=== PATIENT | male | born 1955 | race Caucasian/White ===

== ENCOUNTER 2017-07-05 20:12 | Inpatient (IN) | payer OTHER ==
[~2017-07-05] VITALS: Ht 167.6 cm; Wt 137.0 kg
[~2017-07-05 20:12] MED LIST: ACET1TAB49 PO; HYDR25TA6 PO; LISI10TA2 PO
[2017-07-05 20:38] VITALS: BP 106/64; RESP 18
[2017-07-05 20:39] VITALS: PULSE 82
[2017-07-05 20:40] VITALS: Ht 167.6 cm; Wt 137.0 kg
[2017-07-05] MEDS ORDERED: DOCUSATE SODIUM 100 MG CAP PO PRN (21:00)
[2017-07-05] MEDS ORDERED: NACL 0.9% 3 ML SYG IV SCH (21:00)
[2017-07-05] MEDS ORDERED: ONDANSETRON 4 MG INJ IV PRN (21:00)
[2017-07-05] MEDS ORDERED: BISACODYL (EC) 5 MG TAB PO PRN (21:00)
[2017-07-05] MEDS ORDERED: ACETAMINOPHEN 325 MG TAB PO PRN (21:00)
[2017-07-05 21:59] LABS: BASOPHIL # 0.1 10^3/ul (0.0-0.1); BASOPHILS % 1.1 % (0.0-2.0); EOSINOPHILS # 0.2 10^3/ul (0.0-0.5); EOSINOPHILS % 1.6 % (0.0-7.0); HEMOGLOBIN 13.4 g/dl (14.0-18.0); LYMPHOCYTES # 2.2 10^3/ul (0.8-2.9); LYMPHOCYTES % 23.7 % (15.0-51.0); MEAN CORPUSCULAR HEMOGLOBIN 29.1 pg (29.0-33.0); MEAN CORPUSCULAR HGB CONC 32.7 g/dl (32.0-37.0); MEAN CORPUSCULAR VOLUME 88.9 fl (82.0-101.0); MEAN PLATELET VOLUME 11.7 fl (7.4-10.4); MONOCYTE # 0.8 10^3/ul (0.3-0.9); MONOCYTES % 9.2 % (0.0-11.0); NEUTROPHIL # 5.9 10^3/ul (1.6-7.5); NEUTROPHILS % 64.1 % (39.0-77.0); PLATELET COUNT 169 10^3/UL (140-415); RED BLOOD COUNT 4.61 10^6/ul (4.70-6.10); RED CELL DISTRIBUTION WIDTH 16.3 % (11.5-14.5); WHITE BLOOD COUNT 9.2 10^3/ul (4.8-10.8)
[2017-07-05 22:29] LABS: ALBUMIN 2.9 g/dl (3.3-4.9); ALBUMIN/GLOBULIN RATIO 0.65; BILIRUBIN,INDIRECT 0.7 mg/dl (0-1.1); BILIRUBIN,TOTAL 0.7 mg/dl (0.2-1.3); CALCIUM 8.3 mg/dl (8.4-10.2); CHOL/HDL RATIO 5.2 RATIO; CREATININE 1.74 mg/dl (0.61-1.24); MAGNESIUM 2.5 mg/dl (1.7-2.5); TOTAL PROTEIN 7.3 g/dl (6.1-8.1)
[2017-07-05] MEDS: SOD CHLORIDE 0.9% 1,000 ML IV SCH (22:42)
[2017-07-05 23:26] LABS: THYROID STIMULATING HORMONE 2.8 MIU/L (0.465-4.680)
[2017-07-06] VITALS (12 sets, daily range): BP systolic 100–134; BP diastolic 57–78; PULSE 59–87; RESP 16–20
[2017-07-06] MEDS: morphine 2 MG INJ IV PRN (01:16)
--- NOTE | 2017-07-06 01:18 | HP ---
Date/Time of Note Date/Time of Note DATE: 07/06/17 TIME: 01:01 Assessment/Plan VTE Prophylaxis VTE Prophylaxis Intervention: SCD's Assessment/Plan Chief Complaint/Hosp Course This is a 61-year-old male being admitted to the telemetry floor for: #1 acute pancreatitis: Patient's initial lipase was 206 however upon repeat once he arrived at [place] [id number]. At the current time we will keep the patient n.p.o. We will continue aggressive fluid hydration with normal saline at 200 cc an hour. Will provide Zofran as needed for nausea, morphine as needed for pain. #2 cirrhosis: Patient was recently told he had cirrhosis and he has subsequently obtained appointment with animal husbandry worker as an outpatient in the coming weeks. At the current time he does not appear to be encephalopathic, I will check an ammonia level. When patient gets discharged he will benefit from Lasix. I will check his PT/INR #3 Nonoliguric kidney injury: Previous creatinine was from 2012 which was 0.8. His creatinine was 1.84 from his transfer facility. The current time is likely appears to be acute on chronic kidney disease. Will provide him IV fluid hydration at this time secondary to #1. Will check a renal ultrasound. Will check urine studies. Urine osmolality. Will consult nephrology. Urinalysis and urine microscope #4 Hyponatremia: This likely appears multifactorial in the setting of cirrhosis as well as thiazide effect. Current time I will hold his thiazide as well as his lisinopril secondary to hyperkalemia which was 5.5 at the transfer facility. As he needs fluids at the current time for #1 we will continue aggressive fluid hydration and will monitor his sodium levels. Will consult nephrology. #5 hyperkalemia: Patient had potassium 5.5 when he presented to the transfer facility. At the current time is 5.0 there is a possibility that he received [facility] a transfer facility as well will need to confirm this. Will need to reassess his blood pressure medications at the current time will hold his lisinopril. #6 Thrombocytopenia: Platelets are 169 likely secondary to #2. Continue to monitor #7 diabetes mellitus: Patient has a hemoglobin A1c of 5.6. At the current time will continue a diabetic controlled diet. #8 hypertension: At the current time will hold hydrochlorothiazide and lisinopril secondary to hyponatremia and hyperkalemia. His blood pressure at the current time is on the lower side of normotensive. We will continue to monitor his blood pressures at this time and initiate new medications as indicated. #9 DVT GI prophylaxis: SCDs, no GI prophylaxis indicated further treatment strategy will be implemented as per the clinical course Problems: HPI/ROS Admit Date/Time Admit Date/Time Jul 05, 2017 at 20:12 Hx of Present Illness cc: abdominal pain This is a 61 year old male [facility]. Patient was found to have pancreatitis and due to insurance purposes was transferred over here. Patient' s initial lipase was 206. AST was 90 ALT was 29 alk phos is 172 total bili was 1.2. Patient also has a history of cirrhosis for which she is going to be seeing a liver specialist in the coming weeks. He also has a history of hypertension diabetes. At the current time patient states that his abdominal pain is under control with the pain medications. He reports that his last drink was 4 days ago. He states that he was a heavy drinker for approximately 20 years was 6 months ago he cut down significantly. He now states that he is more of a social drinker. Allergies: NKDA Medications: See MAR ROS Const: As per HPI Eyes : No pain discharge or redness or change in visual acuity ENT: No pain, sore throat, congestion, congestion, dysphagia or discharge Respiratory: No shortness of breath, cough, sputum, wheezing, or pleuritic pain Cardiovascular: No chest pain, palpitation, PND, or edema GI : As per HPI Genitourinary: No dysuria, hematuria, flank pain , discharge or CVA tenderness Musculoskeletal: No joint pain, back pain, neck pain, restricted range of motion in neck or joints Skin: No rash, bruising or hives Neuro: No headache, dizziness, syncope, seizure, focal weakness Endocrine: No polyuria, polydipsia, temperature intolerance Psych: No hallucination, depression, anxiety or suicidal ideation PMH/Family/Social Past Medical History Cirrhosis, diabetes mellitus, hypertension Past Surgical History Appendectomy Family History Significant Family History: no pertinent family hx Social History Alcohol Use: other (Previous heavy drinking for greater than 20 years, over the last 6 months he has decreased his drinking with the last drink 4 days ago. He is currently not an everyday drinker) Smoking Status: Never smoker Drug Use: none Exam/Review of Systems Vital Signs Vitals Vital Signs Date Time Temp Pulse Resp B/P Pulse Ox O2 Delivery O2 Flow Rate FiO2 07/06/17 00:36 98.4 98 16 100/57 100 Exam Exam General: Patient was lying comfortably in bed sleeping. He was easily arousable. HEENT: Atraumatic, normocephalic. The pupils are equal, round and reactive. Extraocular motor are intact Neck: Supple with full range of motion. No rigidity or meningismus Chest: Nontender Lungs: Clear to auscultation bilaterally no crackles rales or wheezing Heart: Normal S1-S2, Regular rhythm and rate. No murmur, S3, or S4 Abdomen: Soft, mildly distended with underlying ascites, mild tenderness to palpation of epigastric area, Extremities: Nonpitting edema to bilateral lower extremities at the level of the ankles Neurologic: Normal mental status, speech normal, cranial nerves II through XII are intact, motor and sensory are intact, no focal weakness Additional Comments Pertinent laboratory findings below, please see transfer recommendation in the chart for full reports: CT of the abdomen and pelvis impression: Cirrhotic liver with ascites, cholelithiasis, retractable left testicle, thickened bladder with inflammation AST 90 ALT 29 alk phos 172 total bili 1.2 creatinine 1.84 GFR 37 potassium 5.5 lipase 206 Labs Result Diagram: 07/05/17212307/05/172123 Medications Medications Current Medications Sodium Chloride (NS) 1,000 ml @ 200 mls/hr Q5H IV Last administered on t 22:42; Admin Dose 200 MLS/HR; Start 07/05/17 at 20:49 Ondansetron HCl (Zofran Inj) 4 mg Q6H PRN IV NAUSEA AND/OR VOMITING; Start at 21:00 Acetaminophen (Tylenol Tab) 650 mg Q6H PRN PO PAIN LEVEL 1-3 OR FEVER; Start 07/05/17 at 21:00 Morphine Sulfate (morphine) 2 mg Q4H PRN IV PAIN LEVEL 7-10; Start 07/05/17 at 21:00 Docusate Sodium (Colace) 100 mg Q12H PRN PO CONSTIPATION; Start 07/05/17 at 21 :00 Bisacodyl (Dulcolax) 5 mg DAILY PRN PO CONSTIPATION; Start 07/05/17 at 21:00 Insulin Aspart (Novolog Insulin Pen) NOVOLOG *MILD* ALGORI... Q4 SC ; Start at 05:00 MALVIN HERNANDEZ Jul 06, 2017 01:11
[2017-07-06] MEDS: SOD CHLORIDE 0.9% 1,000 ML IV SCH ×4 (01:49→18:30)
[2017-07-06] MEDS ORDERED: ACCU-CHEK XX SCH (02:00)
[2017-07-06] MEDS ORDERED: ALBUMIN HUMAN 25% 100 ML IV ONE (02:30)
[2017-07-06] MEDS ORDERED: hydrALAzine 20 MG INJ IV PRN (02:30)
[2017-07-06 02:44] LABS: ALBUMIN 2.6 g/dl (3.3-4.9); ALBUMIN/GLOBULIN RATIO 0.59; BILIRUBIN,INDIRECT 0.6 mg/dl (0-1.1); BILIRUBIN,TOTAL 0.6 mg/dl (0.2-1.3); CALCIUM 7.8 mg/dl (8.4-10.2); CREATININE 1.67 mg/dl (0.61-1.24); POTASSIUM 4.1 mmol/L (3.5-5.1)
[2017-07-06] MEDS ORDERED: INSULIN ASPART [NOVOLOG] 3 ML PEN SC SCH (05:00)
[2017-07-06 07:54] LABS: BASOPHIL # 0.1 10^3/ul (0.0-0.1); BASOPHILS % 0.7 % (0.0-2.0); EOSINOPHILS # 0.1 10^3/ul (0.0-0.5); EOSINOPHILS % 0.7 % (0.0-7.0); HEMATOCRIT 35.1 % (42.0-52.0); HEMOGLOBIN 11.8 g/dl (14.0-18.0); LYMPHOCYTES % 24.1 % (15.0-51.0); MEAN CORPUSCULAR HEMOGLOBIN 29.4 pg (29.0-33.0); MEAN CORPUSCULAR HGB CONC 33.6 g/dl (32.0-37.0); MEAN CORPUSCULAR VOLUME 87.5 fl (82.0-101.0); MEAN PLATELET VOLUME 12.2 fl (7.4-10.4); MONOCYTE # 0.6 10^3/ul (0.3-0.9); MONOCYTES % 7.5 % (0.0-11.0); NEUTROPHIL # 5.4 10^3/ul (1.6-7.5); NEUTROPHILS % 66.5 % (39.0-77.0); PLATELET COUNT 141 10^3/UL (140-415); RED BLOOD COUNT 4.01 10^6/ul (4.70-6.10); RED CELL DISTRIBUTION WIDTH 16.2 % (11.5-14.5); WHITE BLOOD COUNT 8.1 10^3/ul (4.8-10.8)
[2017-07-06 08:15] LABS: INR 1.55; PROTIME 18.9 Sec (11.9-14.9); PT RATIO 1.5
[2017-07-06 08:16] LABS: PARTIAL THROMBOPLASTIN TIME 41.2 Sec (25.0-35.0)
[2017-07-06 08:22] LABS: ALBUMIN 2.8 g/dl (3.3-4.9); ALBUMIN/GLOBULIN RATIO 0.66; BILIRUBIN,INDIRECT 0.6 mg/dl (0-1.1); BILIRUBIN,TOTAL 0.6 mg/dl (0.2-1.3); CALCIUM 7.9 mg/dl (8.4-10.2); CREATININE 1.65 mg/dl (0.61-1.24); POTASSIUM 4.1 mmol/L (3.5-5.1)
--- NOTE | 2017-07-06 09:18 | RADRPT ---
PROCEDURE: Renal US. CLINICAL INDICATION: Renal insufficiency TECHNIQUE: Multiple sonographic images of the kidneys were obtained. COMPARISON: No prior studies are available for comparison. FINDINGS: The kidneys are well visualized. The right kidney measures 11.4 cm. The left kidney measures 12.1 cm . Normal renal cortical echogenicity. No evidence of shadowing renal calculi. Right renal simple cys t measuring 2.6 cm. No hydronephrosis. Nondistended urinary bladder. IMPRESSION: Normal renal ultrasound. RPTAT:AAJJ Physician Deep Date Time Electronically viewed and signed by Physician Deep on 07/06/2017 09:18 /
--- NOTE | 2017-07-06 14:28 | PN ---
Date/Time of Note Date/Time of Note DATE: 07/06/17 TIME: 14:18 Assessment/Plan VTE Prophylaxis VTE Prophylaxis Intervention: SCD's Lines/Catheters IV Catheter Type (from Nrsg): Saline Lock Assessment/Plan Assessment/Plan 1. acute pancreatitis, alcohol related, pain improved, start liquid diet 2. Alcoholism and alcoholic liver disease, advise to quit ETOH 3. Renal failure, acute versus chronic, IVF, follow up renal function 4. Hyponatremia, dehydration, IVF 5. DVT prophylaxis: SCDs, Subjective 24 Hr Interval Summary Free Text/Dictation no abdominal pain, no nausea or vomiting Exam/Review of Systems Vital Signs Vitals Vital Signs Date Time Temp Pulse Resp B/P Pulse Ox O2 Delivery O2 Flow Rate FiO2 07/06/17 12:00 63 07/06/17 11:34 98.8 18 107/68 94 07/06/17 04:00 Room Air Exam Constitutional: alert, obese, oriented, well developed Psych: nl mood/affect, no complaints Head: atraumatic, normocephalic Eyes: EOMI, PERRL, nl conjunctiva, nl lids ENMT: mucosa pink and moist, nl external ears & nose, nl lips & teeth, nl nasal mucosa & septum Neck: non-tender, supple Respiratory: clear to auscultation, normal air movement, No congested cough, No crackles/rales, No diminished breath sounds, No intercostal retraction, No labored breathing, No other, No respirations, No tactile fremitus, No wheezing Cardiovascular: nl pulses, regular rate and rhythm, No S3, No S4, No bruits, No diastolic murmur, No edema, No gallop, No irregular rhythm, No jugular venous distention (JVD), No murmurs/extra sounds, No other, No rub, No systolic murmur Gastrointestinal: nl liver, spleen, non-tender, soft Musculoskeletal: nl extremities to inspection Extremities: edema, normal pulses Neurological: LENS EDGE GRINDER MACHINE II-XII intact, nl mental status, nl speech, nl strength Lymph: nl lymph nodes Results Result Diagram: 07/06/17 0652 07/06/17 0718 Results 24 hrs Laboratory Tests Test 07/05/17 21:24 07/05/17 22:42 07/06/17 01:55 07/06/17 06:52 White Blood Count 9.2 8.1 Red Blood Count 4.61 L 4.01 L Hemoglobin 13.4 L 11.8 L Hematocrit 41.0 L 35.1 L Mean Corpuscular Volume 88.9 87.5 Mean Corpuscular Hemoglobin 29.1 29.4 Mean Corpuscular Hemoglobin Concent 32.7 33.6 Red Cell Distribution Width 16.3 H 16.2 H Platelet Count 169 141 Mean Platelet Volume 11.7 H 12.2 H Neutrophils % 64.1 66.5 Lymphocytes % 23.7 24.1 Monocytes % 9.2 7.5 Eosinophils % 1.6 0.7 Basophils % 1.1 0.7 Nucleated Red Blood Cells % 0.0 0.0 Neutrophils # 5.9 5.4 Lymphocytes # 2.2 2.0 Monocytes # 0.8 0.6 Eosinophils # 0.2 0.1 Basophils # 0.1 0.1 Nucleated Red Blood Cells # 0.0 0.0 Sodium Level 130 L 131 L Potassium Level 5.0 4.1 Chloride Level 101 102 Carbon Dioxide Level 20 L 19 L Anion Gap 14 14 Blood Urea Nitrogen 54 H 51 H Creatinine 1.74 H 1.67 H Glucose Level 91 107 Hemoglobin A1c 5.6 Calcium Level 8.3 L 7.8 L Magnesium Level 2.5 Total Bilirubin 0.7 0.6 Direct Bilirubin 0.00 0.00 Indirect Bilirubin 0.7 0.6 Aspartate Amino Transf (AST/SGOT) 99 H 92 H Alanine Aminotransferase (ALT/SGPT) 50 42 Alkaline Phosphatase 176 H 159 H Total Protein 7.3 7.0 Albumin 2.9 L 2.6 L Globulin 4.40 H 4.40 H Albumin/Globulin Ratio 0.65 0.59 Triglycerides Level 79 Cholesterol Level 104 LDL Cholesterol, Calculated 68 HDL Cholesterol 20 L Cholesterol/HDL Ratio 5.2 Lipase 643 H Thyroid Stimulating Hormone (TSH) 2.800 Bedside Glucose 90 Prothrombin Time 18.9 H Prothrombin Time Ratio 1.5 INR International Normalized Ratio 1.55 Activated Partial Thromboplast Time 41.2 H Osmolality 289 Ammonia 76 H Test 07/06/17 07:18 Sodium Level 133 L Potassium Level 4.1 Chloride Level 104 Carbon Dioxide Level 19 L Anion Gap 14 Blood Urea Nitrogen 53 H Creatinine 1.65 H Glucose Level 88 Calcium Level 7.9 L Total Bilirubin 0.6 Direct Bilirubin 0.00 Indirect Bilirubin 0.6 Aspartate Amino Transf (AST/SGOT) 91 H Alanine Aminotransferase (ALT/SGPT) 47 Alkaline Phosphatase 140 H Total Protein 7.0 Albumin 2.8 L Globulin 4.20 H Albumin/Globulin Ratio 0.66 Lipase 600 H Medications Medications Current Medications Sodium Chloride (NS) 1,000 ml @ 200 mls/hr Q5H IV Last administered on 05:06; Admin Dose 200 MLS/HR; Start 07/05/17 at 20:49 Ondansetron HCl (Zofran Inj) 4 mg Q6H PRN IV NAUSEA AND/OR VOMITING; Start at 21:00 Acetaminophen (Tylenol Tab) 650 mg Q6H PRN PO PAIN LEVEL 1-3 OR FEVER; Start 07/05/17 at 21:00 Morphine Sulfate (morphine) 2 mg Q4H PRN IV PAIN LEVEL 7-10 Last administered on 07/06/17 01:16; Admin Dose 2 MG; Start 07/05/17 at 21:00 Docusate Sodium (Colace) 100 mg Q12H PRN PO CONSTIPATION; Start 07/05/17 at 21 :00 Bisacodyl (Dulcolax) 5 mg DAILY PRN PO CONSTIPATION; Start 07/05/17 at 21:00 Hydralazine HCl (Apresoline) 10 mg Q6H PRN IV ELEVATED SYSTOLIC BP; Start at 02:30 GENNA BENJAMIN MD Jul 06, 2017 14:28
[2017-07-06 14:58] LABS: ADD UMIC YES; UR ASCORBIC ACID NEGATIVE (NEGATIVE); UR BILIRUBIN (Dip) NEGATIVE (NEGATIVE); UR BLOOD (Dip) NEGATIVE (NEGATIVE); UR CLARITY CLEAR (CLEAR); UR COLOR YELLOW (YELLOW); UR GLUCOSE (Dip) NEGATIVE (NEGATIVE); UR KETONES (Dip) TRACE mg/dL (NEGATIVE); UR LEUKOCYTE ESTERASE (Dip) NEGATIVE Leu/ul (NEGATIVE); UR NITRITE (Dip) NEGATIVE (NEGATIVE); UR RBC 1 /HPF (0-5); UR SPECIFIC GRAVITY (Dip) 1.017 (1.003-1.030); UR TOTAL PROTEIN (Dip) 2+ mg/dl (NEGATIVE); UR UROBILINOGEN (Dip) 2+ mg/dL (NEGATIVE)
[2017-07-07] VITALS (9 sets, daily range): BP systolic 95–114; BP diastolic 59–75; PULSE 71–77; RESP 18–20
[2017-07-07] MEDS: SOD CHLORIDE 0.9% 1,000 ML IV SCH ×2 (04:12→14:02)
[2017-07-07 08:42] LABS: BASOPHIL # 0.1 10^3/ul (0.0-0.1); EOSINOPHILS # 0.3 10^3/ul (0.0-0.5); EOSINOPHILS % 3.4 % (0.0-7.0); HEMATOCRIT 36.6 % (42.0-52.0); HEMOGLOBIN 12.2 g/dl (14.0-18.0); LYMPHOCYTES # 2.3 10^3/ul (0.8-2.9); LYMPHOCYTES % 28.2 % (15.0-51.0); MEAN CORPUSCULAR HEMOGLOBIN 29.1 pg (29.0-33.0); MEAN CORPUSCULAR HGB CONC 33.3 g/dl (32.0-37.0); MEAN CORPUSCULAR VOLUME 87.4 fl (82.0-101.0); MEAN PLATELET VOLUME 12.2 fl (7.4-10.4); MONOCYTE # 0.9 10^3/ul (0.3-0.9); MONOCYTES % 11.5 % (0.0-11.0); NEUTROPHIL # 4.4 10^3/ul (1.6-7.5); NEUTROPHILS % 55.6 % (39.0-77.0); PLATELET COUNT 152 10^3/UL (140-415); RED BLOOD COUNT 4.19 10^6/ul (4.70-6.10); RED CELL DISTRIBUTION WIDTH 16.1 % (11.5-14.5)
[2017-07-07 09:13] LABS: ALBUMIN 2.6 g/dl (3.3-4.9); ALBUMIN/GLOBULIN RATIO 0.63; BILIRUBIN,INDIRECT 0.7 mg/dl (0-1.1); BILIRUBIN,TOTAL 0.7 mg/dl (0.2-1.3); CALCIUM 8.2 mg/dl (8.4-10.2); CREATININE 1.35 mg/dl (0.61-1.24); POTASSIUM 4.3 mmol/L (3.5-5.1); TOTAL PROTEIN 6.7 g/dl (6.1-8.1)
--- NOTE | 2017-07-07 12:44 | PN ---
Date/Time of Note Date/Time of Note DATE: 07/07/17 TIME: 12:43 Assessment/Plan VTE Prophylaxis VTE Prophylaxis Intervention: SCD's Lines/Catheters IV Catheter Type (from [facility]): Saline Lock Assessment/Plan Chief Complaint/Hosp Course 1. Acute pancreatitis. -Most probably alcohol induced. -On full liquids. -Continue aggressive IV hydration. 2. Essential hypertension. -Blood pressure well controlled off antihypertensives (RAJEEV inhibitors and hydrochlorothiazide on hold). 3. Diabetes mellitus. -Hemoglobin A1c 5.6. -Blood sugars well controlled off treatment. 4. Acute nonoliguric kidney injury. -Hold nephrotoxic medications. -Continue IV hydration. 5. Hyponatremia. -Continue IV normal saline. 6. Anemia. -Normocytic and normochromic. -Monitor H&H closely. 7. Alcoholic liver cirrhosis. -Start diuretics once the patient's renal function is better. 8. Transaminitis without hyperbilirubinemia. -Most probably secondary to alcoholic liver cirrhosis. -Obtain liver US. 9. Fluids, electrolytes, and nutrition. -Full liquids. -IVFs. 10. DVT prophylaxis. -Bilateral SCDs. 11. Plan. -Trend pancreatic enzyme levels. -Continue pain control. -Obtain liver US. Patient was seen in collaboration with Dr. Clifford. Problems: Subjective 24 Hr Interval Summary Free Text/Dictation Denies any abdominal pain. Exam/Review of Systems Vital Signs Vitals Vital Signs Date Time Temp Pulse Resp B/P Pulse Ox O2 Delivery O2 Flow Rate FiO2 07/07/17 12:17 97.7 74 18 95/59 97 07/06/17 04:00 Room Air Intake and Output 07/06/17 07/06/17 07/07/17 15:00 23:00 07:00 Intake Total 250 ml 250 ml Balance 250 ml 250 ml Exam General: Obese, 61 year-old male lying in bed in no apparent distress. HEENT: Normocephalic, atraumatic. Eyes: Anicteric sclerae, conjunctivae clear. ENT: Nasal septum midline, oral mucosa moist. Neck supple, no JVD noticed. Respiratory: Bilaterally diminished breath sounds. No use of accessory muscles of respiration. No adventitious breath sounds. Cardiovascular: S1, S2 heard. Regular rate and rhythm. Abdomen: Soft, nontender, but nondistended. Bowel sounds positive in all 4 quadrants. Genitourinary: Deferred. Extremities: No cyanosis, no clubbing. Trace B/L pedal edema. Peripheral pulses palpable. Neurologic: Cranial nerves II through XII grossly intact. The patient is awake, alert, and oriented. Skin: Normal skin turgor. No skin rashes. Results Result Diagram: 07/07/17 0722 07/07/17 0722 Results 24 hrs Laboratory Tests Test 07/06/17 14:20 07/07/17 07:22 Urine Color YELLOW Urine Clarity CLEAR Urine pH 6.0 Urine Specific [place] 1.017 Urine Ketones TRACE A Urine Nitrite NEGATIVE Urine Bilirubin NEGATIVE Urine Urobilinogen 2+ H Urine Leukocyte Esterase NEGATIVE Urine Microscopic RBC 1 Urine Microscopic WBC 2 Urine Hemoglobin NEGATIVE Urine Osmolality 614 Urine Random Sodium < 13 L Urine Glucose NEGATIVE Urine Total Protein 2+ H White Blood Count 8.0 Red Blood Count 4.19 L Hemoglobin 12.2 L Hematocrit 36.6 L Mean Corpuscular Volume 87.4 Mean Corpuscular Hemoglobin 29.1 Mean Corpuscular Hemoglobin Concent 33.3 Red Cell Distribution Width 16.1 H Platelet Count 152 Mean Platelet Volume 12.2 H Neutrophils % 55.6 Lymphocytes % 28.2 Monocytes % 11.5 H Eosinophils % 3.4 Basophils % 1.0 Nucleated Red Blood Cells % 0.0 Neutrophils # 4.4 Lymphocytes # 2.3 Monocytes # 0.9 Eosinophils # 0.3 Basophils # 0.1 Nucleated Red Blood Cells # 0.0 Sodium Level 134 L Potassium Level 4.3 Chloride Level 104 Carbon Dioxide Level 21 Anion Gap 13 Blood Urea Nitrogen 42 #H Creatinine 1.35 H Glucose Level 100 Calcium Level 8.2 L Total Bilirubin 0.7 Direct Bilirubin 0.00 Indirect Bilirubin 0.7 Aspartate Amino Transf (AST/SGOT) 110 H Alanine Aminotransferase (ALT/SGPT) 54 Alkaline Phosphatase 160 H Total Protein 6.7 Albumin 2.6 L Globulin 4.10 H Albumin/Globulin Ratio 0.63 Lipase 1049 H Medications Medications Current Medications Sodium Chloride (NS) 1,000 ml @ 100 mls/hr Q10H IV Last administered on t 04:12; Admin Dose 100 MLS/HR; Start 07/05/17 at 20:49 Ondansetron HCl (Zofran Inj) 4 mg Q6H PRN IV NAUSEA AND/OR VOMITING; Start at 21:00 Acetaminophen (Tylenol Tab) 650 mg Q6H PRN PO PAIN LEVEL 1-3 OR FEVER; Start 07/05/17 at 21:00 Morphine Sulfate (morphine) 2 mg Q4H PRN IV PAIN LEVEL 7-10 Last administered on 07/06/17t 01:16; Admin Dose 2 MG; Start 07/05/17 at 21:00 Docusate Sodium (Colace) 100 mg Q12H PRN PO CONSTIPATION; Start 07/05/17 at 21 :00 Bisacodyl (Dulcolax) 5 mg DAILY PRN PO CONSTIPATION; Start 07/05/17 at 21:00 Hydralazine HCl (Apresoline) 10 mg Q6H PRN IV ELEVATED SYSTOLIC BP; Start at 02:30 JES HANSON NP Jul 07, 2017 12:44
[2017-07-07 15:07] LABS: IRON 16 ug/dl (35-150)
[2017-07-07 15:16] LABS: TOTAL IRON BINDING CAPACITY 335 ug/dl (241-421)
[2017-07-07] MEDS: SOD FERRIC GLUC COMPLX 125 MG in SOD CHLORIDE 0.9% 100 ML IVPB SCH (18:24)
[2017-07-08 00:30] VITALS: BP 104/61; PULSE 77; RESP 15
[2017-07-08 02:12] VITALS: BP 120/71; RESP 18
[2017-07-08] MEDS: SOD CHLORIDE 0.9% 1,000 ML IV SCH ×4 (02:20→21:15)
[2017-07-08 06:08] LABS: BASOPHIL # 0.1 10^3/ul (0.0-0.1); BASOPHILS % 0.9 % (0.0-2.0); EOSINOPHILS # 0.3 10^3/ul (0.0-0.5); EOSINOPHILS % 2.8 % (0.0-7.0); HEMATOCRIT 39.6 % (42.0-52.0); LYMPHOCYTES # 2.3 10^3/ul (0.8-2.9); LYMPHOCYTES % 26.3 % (15.0-51.0); MEAN CORPUSCULAR HEMOGLOBIN 29.1 pg (29.0-33.0); MEAN CORPUSCULAR HGB CONC 32.8 g/dl (32.0-37.0); MEAN CORPUSCULAR VOLUME 88.6 fl (82.0-101.0); MEAN PLATELET VOLUME 11.7 fl (7.4-10.4); MONOCYTE # 0.9 10^3/ul (0.3-0.9); NEUTROPHIL # 5.3 10^3/ul (1.6-7.5); NEUTROPHILS % 59.4 % (39.0-77.0); PLATELET COUNT 155 10^3/UL (140-415); RED BLOOD COUNT 4.47 10^6/ul (4.70-6.10); RED CELL DISTRIBUTION WIDTH 16.3 % (11.5-14.5); WHITE BLOOD COUNT 8.9 10^3/ul (4.8-10.8)
[2017-07-08 06:37] LABS: MAGNESIUM 2.3 mg/dl (1.7-2.5); PHOSPHORUS 3.6 mg/dl (2.5-4.9)
[2017-07-08 07:11] LABS: ALBUMIN 2.7 g/dl (3.3-4.9); ALBUMIN/GLOBULIN RATIO 0.67; BILIRUBIN,INDIRECT 0.8 mg/dl (0-1.1); BILIRUBIN,TOTAL 0.8 mg/dl (0.2-1.3); CREATININE 1.2 mg/dl (0.61-1.24); POTASSIUM 4.2 mmol/L (3.5-5.1); TOTAL PROTEIN 6.7 g/dl (6.1-8.1)
[2017-07-08 07:45] LABS: AMYLASE 123 U/L (11-123)
[2017-07-08 08:04] VITALS: BP 106/56; RESP 16
--- NOTE | 2017-07-08 08:32 | RADRPT ---
PROCEDURE: Right upper quadrant abdominal ultrasound. CLINICAL INDICATION: Abdominal pain, pancreatitis TECHNIQUE: Cuevas scale and color doppler ultrasound images of the right upper quadrant of the abdom en. COMPARISON: US ABDOMEN 07/06/2017 FINDINGS: Pancreas: Visualized portions appear within normal limits without focal fluid collection. Liver: Morphology: Enlarged measuring 18.3 cm. Contour: Nodularity is present. Echogenicity: Multiple areas of heterogeneous hypoechoic change. Focal lesions: Possible 4.5 cm lesion within the right lobe of the liver. Main portal vein: Patent with hepatopetal flow. Biliary System: Gallbladder wall: Mild gallbladder wall thickening and pericholecystic fluid. Gallstones: None. Intrahepatic bile ducts: Normal caliber. Common bile duct diameter (mm): Not visualized by the mill helper. Kidneys: Right length (cm) : 11.9 Right cortical thickness: Normal. Echogenicity: Normal. Hydronephrosis: None. Renal calculi: None. Focal lesions: None. Free fluid/ascites: Mild perihepatic ascites. Abdominal aorta: Not visualized by the mill helper. Other findings: None. IMPRESSION: Mild perihepatic ascites. Diffusely heterogeneous appearance the liver with contour nodularity suggesting changes of cirrhosis . Poorly visualized suspected hepatic lesions measuring up to 4.[address] of the abdomen with hepatic m ass protocol recommended for further evaluation. Gallbladder wall thickening with pericholecystic fluid without gallstones possibly due to secondary causes such as hepatic dysfunction/cirrhosis. If clinical concern for acalculous cholecystitis HIDA scan can be obtained for further evaluation. Normal caliber intrahepatic biliary system. Extrahepatic biliary system not visualized. Normal appearance of the visualized portions of the pancreas. RPTAT: AADD .Sulaiman Gutierrez MD, MD Date Time Electronically viewed and signed by .Sulaiman Gutierrez MD, MD on 07/08/2017 08:32 .B/
--- NOTE | 2017-07-08 08:51 | PN ---
Date/Time of Note Date/Time of Note DATE: 07/08/17 TIME: 08:46 Assessment/Plan VTE Prophylaxis VTE Prophylaxis Intervention: SCD's Lines/Catheters IV Catheter Type (from Nrs): Peripheral IV Assessment/Plan Chief Complaint/Hosp Course 1. Acute pancreatitis. -Most probably alcohol induced. -Continue aggressive IV hydration. -Continue full liquids. 2. Essential hypertension. -Blood pressure well controlled off antihypertensives (RAJEEV inhibitors and hydrochlorothiazide on hold). 3. Diabetes mellitus. -Hemoglobin A1c 5.6. -Blood sugars well controlled off treatment. 4. Acute nonoliguric kidney injury. -Hold nephrotoxic medications. -Continue IV hydration. 5. Hyponatremia. -Continue IV normal saline. -Improving. 6. Anemia. -Normocytic and normochromic. -Monitor H&H closely. 7. Alcoholic liver cirrhosis. -Start diuretics once the patient's renal function is better. -Gastroenterology consult. 8. Transaminitis without hyperbilirubinemia. -Most probably secondary to alcoholic liver cirrhosis. -Liver ultrasound negative for any cholelithiasis or biliary ductal dilatation. 9. Poorly visualized suspicious hepatic lesions measuring up to 4.5 cm liver ultrasound. -Etiology unclear.. -Obtain alpha-fetoprotein. -Gastroenterology consult. -CT abdomen with hepatic mass protocol. 10. Fluids, electrolytes, and nutrition. -Full liquids. -IVFs. 11. DVT prophylaxis. -Bilateral SCDs. 11. Plan. -Trend pancreatic enzyme levels. -Continue pain control. -Gastroenterology consult. -Start lactulose. -Continue full liquids. -CT abdomen with hepatic mass protocol. Patient was seen in collaboration with Dr. Clifford. Problems: Subjective 24 Hr Interval Summary Free Text/Dictation Denies any pain. Tolerating full liquids. Exam/Review of Systems Vital Signs Vitals Vital Signs Date Time Temp Pulse Resp B/P Pulse Ox O2 Delivery O2 Flow Rate FiO2 07/08/17 08:04 97.8 76 16 106/56 91 07/08/17 00:30 Room Air Intake and Output 07/07/17 07/07/17 07/08/17 15:00 23:00 07:00 Intake Total 810 ml 450 ml Balance 810 ml 450 ml Exam General: Obese, 61 year-old male lying in bed in no apparent distress. HEENT: Normocephalic, atraumatic. Eyes: Anicteric sclerae, conjunctivae clear. ENT: Nasal septum midline, oral mucosa moist. Neck supple, no JVD noticed. Respiratory: Bilaterally diminished breath sounds. No use of accessory muscles of respiration. No adventitious breath sounds. Cardiovascular: S1, S2 heard. Regular rate and rhythm. Abdomen: Soft, nontender, but nondistended. Bowel sounds positive in all 4 quadrants. Genitourinary: Deferred. Extremities: No cyanosis, no clubbing. Trace B/L pedal edema. Peripheral pulses palpable. Neurologic: Cranial nerves II through XII grossly intact. The patient is awake, alert, and oriented. Skin: Normal skin turgor. No skin rashes. Results Result Diagram: 07/08/17 0541 07/08/17 0541 Results 24 hrs Laboratory Tests Test 07/07/17 14:40 07/08/17 05:41 Iron Level 16 L Total Iron Binding Capacity 335 Percent Iron Saturation 5 L Ferritin 61.9 White Blood Count 8.9 Red Blood Count 4.47 L Hemoglobin 13.0 L Hematocrit 39.6 L Mean Corpuscular Volume 88.6 Mean Corpuscular Hemoglobin 29.1 Mean Corpuscular Hemoglobin Concent 32.8 Red Cell Distribution Width 16.3 H Platelet Count 155 Mean Platelet Volume 11.7 H Neutrophils % 59.4 Lymphocytes % 26.3 Monocytes % 10.0 Eosinophils % 2.8 Basophils % 0.9 Nucleated Red Blood Cells % 0.0 Neutrophils # 5.3 Lymphocytes # 2.3 Monocytes # 0.9 Eosinophils # 0.3 Basophils # 0.1 Nucleated Red Blood Cells # 0.0 Sodium Level 135 Potassium Level 4.2 Chloride Level 106 Carbon Dioxide Level 19 L Anion Gap 14 Blood Urea Nitrogen 31 #H Creatinine 1.20 Glucose Level 91 Calcium Level 8.0 L Phosphorus Level 3.6 Magnesium Level 2.3 Total Bilirubin 0.8 Direct Bilirubin 0.00 Indirect Bilirubin 0.8 Aspartate Amino Transf (AST/SGOT) 172 #H Alanine Aminotransferase (ALT/SGPT) 71 H Alkaline Phosphatase 190 H Ammonia 67 H Total Protein 6.7 Albumin 2.7 L Globulin 4.00 H Albumin/Globulin Ratio 0.67 Amylase Level 123 Lipase 975 H Medications Medications Current Medications Sodium Chloride (NS) 1,000 ml @ 100 mls/hr Q10H IV Last administered on 02:20; Admin Dose 100 MLS/HR; Start 07/05/17 at 20:49 Ondansetron HCl (Zofran Inj) 4 mg Q6H PRN IV NAUSEA AND/OR VOMITING; Start at 21:00 Acetaminophen (Tylenol Tab) 650 mg Q6H PRN PO PAIN LEVEL 1-3 OR FEVER; Start 07/05/17 at 21:00 Morphine Sulfate (morphine) 2 mg Q4H PRN IV PAIN LEVEL 7-10 Last administered on 07/06/17 01:16; Admin Dose 2 MG; Start 07/05/17 at 21:00 Docusate Sodium (Colace) 100 mg Q12H PRN PO CONSTIPATION; Start 07/05/17 at 21 :00 Bisacodyl (Dulcolax) 5 mg DAILY PRN PO CONSTIPATION; Start 07/05/17 at 21:00 Hydralazine HCl 10 mg 10 mg Q6H PRN IV ELEVATED SYSTOLIC BP; Start 07/06/17 at 02:30 Ferric Sodium Gluconate Complex/ Sodium Chloride (Ferrlecit/NS) 110 ml @ 100 mls/hr Q24H IVPB Last administered on 07/07/17 18:24; Admin Dose 100 MLS/HR; Start 07/07/17 at 17:30; Stop 07/09/17 at 18:35 JES HANSON NP Jul 08, 2017 08:51
[2017-07-08 09:48] LABS: HAAIG REFLEX REFLEX FILED
[2017-07-08] MEDS ORDERED: BARIUM SULF 2% 450 ML BTL (BERRY SMOOTHIE) PO ONE ×2 (10:00→13:00)
[2017-07-08 10:59] LABS: HEPATITIS B CORE ANTIBODY NEGATIVE (NEGATIVE)
--- NOTE | 2017-07-08 12:22 | CONS ---
Date/Time of Note Date/Time of Note DATE: 07/08/17 TIME: 12:02 Assessment/Plan Assessment/Plan Chief Complaint/Hosp Course Assessment: Liver mass Alcoholic liver cirrhosis Acute pancreatitis Hypertension Diabetes mellitus type 2 Anemia normocytic Transaminitis-trending down Plan: EGD/colonoscopy on Sunday CT scan with IV contrast today Hepatitis panel and alpha-fetoprotein pending Ordered CA 19-9 Start clear liquid diet Consultation performed in collaboration with Dr. Vance Subjective: Patient is laying in bed, states he is feeling much better today and wants to go home. He denies any pain today. Patient has been interviewed and examined, plan of treatment has been reviewed. Risks and benefits of procedure have been explained. Patient agreed to colonoscopy and EGD. All imaging and laboratory values have been reviewed. Course of treatment has been discussed with the nursing staff. Problems: Consultation Date/Type/Reason Admit Date/Time Jul 05, 2017 at 20:12 Date of Consultation: Jul 08, 2017 Type of Consultation: GI Reason for Consultation Liver mass on US Hx of Present Illness This is a very pleasant 61-year-old male. He has been transferred from [facility] yesterday. Initially he got hospitalized on July 06 for nausea and abdominal pain. He is being treated for acute alcoholic pancreatitis. Patient had a previous diagnosis of compensated liver cirrhosis. Abdominal ultrasound showed 4.5 cm liver mass. Patient denies hematemesis, melena, hematochezia. Abdominal pain has been resolved. Patient never had EGD or colonoscopy. Other medical problems include diabetes mellitus type 2 controlled with diet, hypertension. Currently patient is slightly anemic hemoglobin 13.0, lipase 975, ammonia 67, liver enzymes trending down AST [address] of pelvis and abdomen with IV contrast has been ordered for today. Hepatitis panel and alpha-fetoprotein tests are pending, CA 19-9 tumor marker test has been ordered. Plan to do EGD and colonoscopy on Sunday Genitourinary: no complaints (See HPI) Past Medical History Compensated liver cirrhosis, hypertension, diabetes mellitus type 2 Past Surgical History Appendectomy with laparotomy Family History Significant Family History: cancer (Mother had liver cancer (was a heavy drinker)) Social History Patient is semiretired, lives with and one child Alcohol Use: other (Previous heavy drinking for greater than 20 years, over the last 6 months he has decreased his drinking with the last drink 4 days ago. He is currently not an everyday drinker) Smoking Status: Never smoker Drug Use: none Exam/Review of Systems Vital Signs Vitals Vital Signs Date Time Temp Pulse Resp B/P Pulse Ox O2 Delivery O2 Flow Rate FiO2 07/08/17 08:04 97.8 76 16 106/56 91 07/08/17 00:30 Room Air Intake and Output 07/07/17 07/07/17 07/08/17 15:00 23:00 07:00 Intake Total 810 ml 450 ml Balance 810 ml 450 ml Exam PHYSICAL EXAMINATION: GENERAL: Well developed, obese, well nourished, alert & oriented x 3, in no acute distress SKIN: No lesions, no stigmata chronic liver disease, no evidence of bleeding diathesis, large abdominal healed scar from laparotomy for appendectomy LYMPHATIC: No palpable lymphadenopathy. HEAD: Normocephalic, atraumatic, no tenderness. EYES: Pupils equal reactive to light and accommodation, full extraocular movements, sclera clear, non-icteric, no discharge. EARS/NOSE AND THROAT: Ears normal, nose normal, oropharynx normal, oral membranes well hydrated without lesions. NECK: Supple, no masses, thyroid normal, JVP within normal limits, carotids normal without bruits. CHEST: Inspection within normal limits. CARDIOVASCULAR: Heart: Regular rate and rhythm, no murmurs, gallops or rubs. Peripheral pulses present within normal limits, no cyanosis, clubbing or edemas. No pulsatile abdominal mass RESPIRATORY: Lungs clear to auscultation and percussion, no wheezing, no rubs GASTROINTESTINAL AND LIVER: Abdomen: Soft, obese, non tenderness, non-distended , no hernias, no masses, no organomegaly, ascites, no guarding, no rebound tenderness, normoactive bowel sounds. Rectal: Deferred. GENITOURINARY: [Male genitalia within normal limits. EXTREMITIES: No cyanosis, clubbing or edema. Results Result Diagram: 07/08/17 0541 07/08/17 0541 Results 24 hrs Laboratory Tests Test 07/07/17 14:40 07/08/17 05:41 07/08/17 10:36 Iron Level 16 L Total Iron Binding Capacity 335 Percent Iron Saturation 5 L Ferritin 61.9 White Blood Count 8.9 Red Blood Count 4.47 L Hemoglobin 13.0 L Hematocrit 39.6 L Mean Corpuscular Volume 88.6 Mean Corpuscular Hemoglobin 29.1 Mean Corpuscular Hemoglobin Concent 32.8 Red Cell Distribution Width 16.3 H Platelet Count 155 Mean Platelet Volume 11.7 H Neutrophils % 59.4 Lymphocytes % 26.3 Monocytes % 10.0 Eosinophils % 2.8 Basophils % 0.9 Nucleated Red Blood Cells % 0.0 Neutrophils # 5.3 Lymphocytes # 2.3 Monocytes # 0.9 Eosinophils # 0.3 Basophils # 0.1 Nucleated Red Blood Cells # 0.0 Sodium Level 135 Potassium Level 4.2 Chloride Level 106 Carbon Dioxide Level 19 L Anion Gap 14 Blood Urea Nitrogen 31 #H Creatinine 1.20 Glucose Level 91 Calcium Level 8.0 L Phosphorus Level 3.6 Magnesium Level 2.3 Total Bilirubin 0.8 Direct Bilirubin 0.00 Indirect Bilirubin 0.8 Aspartate Amino Transf (AST/SGOT) 172 #H Alanine Aminotransferase (ALT/SGPT) 71 H Alkaline Phosphatase 190 H Ammonia 67 H Total Protein 6.7 Albumin 2.7 L Globulin 4.00 H Albumin/Globulin Ratio 0.67 Amylase Level 123 Lipase 975 H Hepatitis B Surface Antigen NEGATIVE Hepatitis B Core Total Antibody NEGATIVE Hepatitis C Antibody NEGATIVE Alpha Fetoprotein 65344.00 H Medications Medications Current Medications Sodium Chloride (NS) 1,000 ml @ 100 mls/hr Q10H IV Last administered on 11:59; Admin Dose 100 MLS/HR; Start 07/05/17 at 20:49 Ondansetron HCl (Zofran Inj) 4 mg Q6H PRN IV NAUSEA AND/OR VOMITING; Start at 21:00 Acetaminophen (Tylenol Tab) 650 mg Q6H PRN PO PAIN LEVEL 1-3 OR FEVER; Start 07/05/17 at 21:00 Morphine Sulfate (morphine) 2 mg Q4H PRN IV PAIN LEVEL 7-10 Last administered on 07/06/17 01:16; Admin Dose 2 MG; Start 07/05/17 at 21:00 Docusate Sodium (Colace) 100 mg Q12H PRN PO CONSTIPATION; Start 07/05/17 at 21 :00 Bisacodyl (Dulcolax) 5 mg DAILY PRN PO CONSTIPATION; Start 07/05/17 at 21:00 Hydralazine HCl 10 mg 10 mg Q6H PRN IV ELEVATED SYSTOLIC BP; Start 07/06/17 at 02:30 Ferric Sodium Gluconate Complex/ Sodium Chloride (Ferrlecit/NS) 110 ml @ 100 mls/hr Q24H IVPB Last administered on 07/07/17t 18:24; Admin Dose 100 MLS/HR; Start 07/07/17 at 17:30; Stop 07/09/17 at 18:35 Lactulose (Enulose) 20 gm Q8 PO ; Start 07/08/17 at 14:00 Copies To: CC: CORA VANCE MD, ANASTASIA NP Jul 08, 2017 12:13
[2017-07-08] MEDS ORDERED: BISACODYL (EC) 5 MG TAB PO ONE (12:30)
[2017-07-08] MEDS ORDERED: IOHEXOL 100 ML ONE (13:06)
[2017-07-08] MEDS ORDERED: IOHEXOL 350MG/ML 50 ML BTL ONE (13:06)
[2017-07-08] MEDS ORDERED: SOD CHLORIDE 0.9% 100 ML ONE (13:06)
[2017-07-08 14:04] VITALS: BP 142/82; RESP 18
[2017-07-08] MEDS: LACTULOSE 30ML CUP PO SCH ×2 (14:09→21:38)
--- NOTE | 2017-07-08 16:12 | RADRPT ---
PROCEDURE: CT SCAN OF THE ABDOMEN AND PELVIS WITH IV CONTRAST CLINICAL INDICATION: Liver lesion noted on ultrasound TECHNIQUE: CT hepatic protocol was utilized. Utilizing the multi-slice spiral CT scanner, Transaxial images were obtained through the abdomen and pelvis with IV contrast. Additional sagittal, coronal, MPR images were also obtained. DICOM images are available Radiation Dose: CTDI vol 20.07 mGy, DLP 796.71 mGy-cm. One of more of the following dose reduction techniques were utilized: -automatic exposure control -adjustment of the mA and/or kV according to patient size -Use of iterative reconstruction technique Contrast used: 120 cc Omnipaque 350 COMPARISON: Ultrasound abdomen 07/07/2017 FINDINGS: Limited slices through the lung bases demonstrate cardiomegaly with diffuse ground-glass pattern in the lung bases. Degenerative changes noted in the lower dorsal spine. No pericardial effusion noted. CT Abdomen Large ascites is seen. Heterogeneous lesions in the liver are seen with poorly defined margins, larg est in the right lobe near the dome measures approximately 6 cm. Portal and hepatic veins are patent . Nondistended stomach, normal spleen, adrenals, pancreas, gallbladder is seen. Kidneys do not demons trate any hydronephrosis. Exophytic low-density lesion right renal parenchyma suggestive of cyst. No rmal origins of the celiac, SMA, bilateral renal arteries is noted. Whole-body subcutaneous edema se en. Bowel gas pattern appears nonspecific with the no free air noted. No retroperitoneal adenopathy seen. CT pelvis: Moderate ascites seen. Degenerative changes noted in the lumbosacral spine. A few divert icula noted in the rectosigmoid colon. Prostate, bladder appears unremarkable. Bilateral inguinal ly mph nodes are seen. IMPRESSION: Heterogeneous liver lesions with heterogeneous marginal enhancement noted. Findings highly suspiciou s for infiltrative neoplastic process, hepatic cellular carcinoma. Large ascites RPTAT: AAOO Physician Ha Date Time Electronically viewed and signed by Physician Ha on 07/08/2017 16:11 MB/
[2017-07-08] MEDS: SOD FERRIC GLUC COMPLX 125 MG in SOD CHLORIDE 0.9% 100 ML IVPB SCH (17:30)
[2017-07-08] MEDS ORDERED: MAGNESIUM CITRATE 300 ML BTL PO ONE (17:30)
[2017-07-08] MEDS ORDERED: POLYETHYLENE GLYCOL 3350 119 GM POWDER PO ONE (18:30)
[2017-07-08 20:15] VITALS: BP 143/87; RESP 18
[2017-07-08] MEDS ORDERED: ALBUTEROL/IPRATROPIUM (NEB) 3 ML AMP HHN STA (21:27)
--- NOTE | 2017-07-08 22:17 | RADRPT ---
PROCEDURE: XR Chest. CLINICAL INDICATION: Shortness of breath. TECHNIQUE: AP Portable chest. COMPARISON: 05/29/2012 FINDINGS: The cardiomediastinal silhouette is normal. The lungs are clear. The osseous structures are unrema rkable. IMPRESSION: No acute findings. RPTAT: HIKT .Abner Tee MD, MD Date Time Electronically viewed and signed by .Abner Tee MD, on 07/08/2017 22:16 .T/
[2017-07-09] VITALS (11 sets, daily range): BP systolic 111–164; BP diastolic 59–100; PULSE 88–96; RESP 18–31
[2017-07-09] MEDS: SOD CHLORIDE 0.9% 1,000 ML IV SCH ×3 (00:28→09:57)
[2017-07-09] MEDS ORDERED: POLYETHYLENE GLYCOL 3350 119 GM POWDER PO ONE (06:00)
[2017-07-09] MEDS: LACTULOSE 30ML CUP PO SCH ×3 (06:07→22:57)
[2017-07-09 06:08] LABS: BASOPHIL # 0.1 10^3/ul (0.0-0.1); BASOPHILS % 0.5 % (0.0-2.0); EOSINOPHILS # 0.1 10^3/ul (0.0-0.5); EOSINOPHILS % 1.2 % (0.0-7.0); HEMATOCRIT 38.6 % (42.0-52.0); HEMOGLOBIN 12.9 g/dl (14.0-18.0); MEAN CORPUSCULAR HEMOGLOBIN 29.5 pg (29.0-33.0); MEAN CORPUSCULAR HGB CONC 33.4 g/dl (32.0-37.0); MEAN CORPUSCULAR VOLUME 88.3 fl (82.0-101.0); MONOCYTE # 1.1 10^3/ul (0.3-0.9); MONOCYTES % 9.5 % (0.0-11.0); NEUTROPHIL # 8.4 10^3/ul (1.6-7.5); NEUTROPHILS % 71.2 % (39.0-77.0); PLATELET COUNT 146 10^3/UL (140-415); RED BLOOD COUNT 4.37 10^6/ul (4.70-6.10); RED CELL DISTRIBUTION WIDTH 16.6 % (11.5-14.5); WHITE BLOOD COUNT 11.8 10^3/ul (4.8-10.8)
[2017-07-09 06:54] LABS: MAGNESIUM 2.3 mg/dl (1.7-2.5); PHOSPHORUS 3.7 mg/dl (2.5-4.9)
[2017-07-09 07:07] LABS: ALBUMIN 2.7 g/dl (3.3-4.9); ALBUMIN/GLOBULIN RATIO 0.67; BILIRUBIN,DIRECT 0.4 mg/dl (0.00-0.20); BILIRUBIN,INDIRECT 1.1 mg/dl (0-1.1); BILIRUBIN,TOTAL 1.5 mg/dl (0.2-1.3); CALCIUM 8.1 mg/dl (8.4-10.2); CREATININE 1.13 mg/dl (0.61-1.24); POTASSIUM 4.5 mmol/L (3.5-5.1); TOTAL PROTEIN 6.7 g/dl (6.1-8.1)
[2017-07-09 07:27] LABS: AMYLASE 89 U/L (11-123)
[2017-07-09] MEDS ORDERED: BISACODYL (EC) 5 MG TAB PO ONE (08:00)
--- NOTE | 2017-07-09 13:45 | PN ---
Date/Time of Note Date/Time of Note DATE: 07/09/17 TIME: 13:42 Assessment/Plan VTE Prophylaxis VTE Prophylaxis Intervention: ambulation, SCD's Lines/Catheters IV Catheter Type (from Nrsg): Peripheral IV Assessment/Plan Chief Complaint/Hosp Course Assessment and plan 1. Acute pancreatitis. Suspect alcohol induced. Continue IV hydration. Advance diet as tolerated. 2. Essential hypertension. Continue antihypertensives and adjust needed. 3. History of diabetes. Well-controlled at this time. Will monitor 4. AK I. Monitor renal panel. Avoid hepatotoxic nephrotoxic medications. 5. Hyponatremia. Continue IV hydration. Slowly improving. 6. Anemia. Monitor H&H. Transfuse blood products as needed. 7. Alcoholic liver cirrhosis. Continue diuretics. GI swallow. 8. Transaminase with hyperbilirubinemia. secondary to alcohol abuse. 9. Hepatic lesions. As noted on CT scan. Follow-up with GI. Surgeon consultation pending clinical course. Disposition and plan: Tentative plan for EGD. Continue lactulose. Surgeon consultation pending clinical course. Discussed plan of care with Dr. Gutierrez Problems: Subjective 24 Hr Interval Summary Free Text/Dictation no reports of abd pain at this time. Exam/Review of Systems Vital Signs Vitals Vital Signs Date Time Temp Pulse Resp B/P Pulse Ox O2 Delivery O2 Flow Rate FiO2 07/09/17 07:19 98.5 87 18 123/66 92 07/08/17 23:15 Nasal Cannula 2.0 Intake and Output 07/08/17 07/08/17 07/09/17 15:00 23:00 07:00 Intake Total 1250 ml 2340 ml 950 ml Balance 1250 ml 2340 ml 950 ml Exam Constitutional: alert, oriented Psych: nl mood/affect Head: normocephalic Eyes: nl conjunctiva Neck: non-tender, supple Respiratory: clear to auscultation, normal air movement Cardiovascular: nl pulses, regular rate and rhythm Gastrointestinal: other (appears distended, but nontender ), soft Musculoskeletal: nl extremities to inspection Extremities: normal pulses Neurological: RUG LAYER II-XII intact, nl mental status, nl speech Results Result Diagram: 07/09/1752607/09/1727 Results 24 hrs Laboratory Tests Test 07/09/17 05:27 White Blood Count 11.8 #H Red Blood Count 4.37 L Hemoglobin 12.9 L Hematocrit 38.6 L Mean Corpuscular Volume 88.3 Mean Corpuscular Hemoglobin 29.5 Mean Corpuscular Hemoglobin Concent 33.4 Red Cell Distribution Width 16.6 H Platelet Count 146 Mean Platelet Volume 12.0 H Neutrophils % 71.2 Lymphocytes % 17.0 Monocytes % 9.5 Eosinophils % 1.2 Basophils % 0.5 Nucleated Red Blood Cells % 0.0 Neutrophils # 8.4 H Lymphocytes # 2.0 Monocytes # 1.1 H Eosinophils # 0.1 Basophils # 0.1 Nucleated Red Blood Cells # 0.0 Sodium Level 135 Potassium Level 4.5 Chloride Level 107 Carbon Dioxide Level 17 L Anion Gap 16 Blood Urea Nitrogen 23 H Creatinine 1.13 Glucose Level 99 Calcium Level 8.1 L Phosphorus Level 3.7 Magnesium Level 2.3 Total Bilirubin 1.5 H Direct Bilirubin 0.40 #H Indirect Bilirubin 1.1 Aspartate Amino Transf (AST/SGOT) 375 #H Alanine Aminotransferase (ALT/SGPT) 157 H Alkaline Phosphatase 210 H Total Protein 6.7 Albumin 2.7 L Globulin 4.00 H Albumin/Globulin Ratio 0.67 Amylase Level 89 Lipase 832 H Medications Medications Current Medications Sodium Chloride (NS) 1,000 ml @ 100 mls/hr Q10H IV Last administered on 09:57; Admin Dose 100 MLS/HR; Start 07/05/17 at 20:49 Ondansetron HCl (Zofran Inj) 4 mg Q6H PRN IV NAUSEA AND/OR VOMITING; Start at 21:00 Acetaminophen (Tylenol Tab) 650 mg Q6H PRN PO PAIN LEVEL 1-3 OR FEVER; Start 07/05/17 at 21:00 Morphine Sulfate (morphine) 2 mg Q4H PRN IV PAIN LEVEL 7-10 Last administered on 07/06/17 01:16; Admin Dose 2 MG; Start 07/05/17 at 21:00 Docusate Sodium (Colace) 100 mg Q12H PRN PO CONSTIPATION; Start 07/05/17 at 21 :00 Bisacodyl (Dulcolax) 5 mg DAILY PRN PO CONSTIPATION; Start 07/05/17 at 21:00 Hydralazine HCl 10 mg 10 mg Q6H PRN IV ELEVATED SYSTOLIC BP; Start 07/06/17 at 02:30 Ferric Sodium Gluconate Complex/ Sodium Chloride (Ferrlecit/NS) 110 ml @ 100 mls/hr Q24H IVPB Last administered on 07/08/17 17:30; Admin Dose 100 MLS/HR; Start 07/07/17 at 17:30; Stop 07/09/17 at 18:35 Lactulose (Enulose) 20 gm Q8 PO Last administered on 07/09/17 06:07; Admin Dose 20 GM; Start 07/08/17 at 14:00 RACHANA HORVATH Jul 09, 2017 13:45 RACHANA HORVATH Jul 09, 2017 13:45
[2017-07-09] MEDS ORDERED: FAMOTIDINE 20 MG INJ ONE (16:15)
[2017-07-09] MEDS ORDERED: METOCLOPRAMIDE 10 MG INJ ONE (16:15)
--- NOTE | 2017-07-09 18:05 | HPN ---
Date/Time of Note Date/Time of Note DATE: 07/09/17 TIME: 18:04 Interval H&P Admission Note Pt. seen H&P reviewed: No system changes CORA HUSSEIN MD Jul 09, 2017 18:05
[2017-07-09] MEDS ORDERED: PROPOFOL 20 ML ONE (18:08)
[2017-07-09] MEDS ORDERED: LIDOCAINE 2% (SDV) 5 ML INJ ONE (18:08)
--- NOTE | 2017-07-09 18:43 | OPPN ---
Date/Time of Note Date/Time of Note DATE: 07/09/17 TIME: 18:29 Proc Note GI Procedure Date 07/09/17 Indication: other (Liver mass/rule out GI primary) Pre-procedure Diagnosis Liver mass/rule out GI primary Post-procedure Diagnosis Impression: Grade III/IV esophageal varices. Post EVL x6 3 cm distal body gastric ulceration on amount. Limited biopsies obtained 2 x 3 cm linear gastric body ulceration Otherwise normal EGD Plan: PPI therapy Review pathology Procedure Performed: Endoscopy (With EVL, EGD with biopsies) Surgeon CORA HUSSEIN MD See signature line Zipper Sewing Machine Operator none Anesthesia Type: MAC Anesthesiologist: JAY TRAMMELL DO Tourniquet Time none EBL none Transfusion required none Biopsy 1: Gastric ulcer Grafts/Implants none Tubes/Drains none Complication(s) none Procedure Description After informed consent, with the patient/relatives understanding the procedure, its indications, potential risks and complications, including but not limited to : allergic reaction, bleeding, perforation or infection, and after all pertinent questions were answered to the patients satisfaction, the patient/ relatives signed witnessed informed consent. Following this, premedication was administered slowly IV push under careful cardiovascular and respiratory monitoring with pulse oximetry, automatic blood pressure, and traffic monitor specialist. Once the sedative effect was achieved the patient was place in the left lateral decubitus, the panendoscope was introduced and advanced under visual control. Careful examination of the upper gastrointestinal tract, both on insertion as well as withdrawal of the instrument disclosing the following findings: ESOPHAGUS: the mucosa of the entire esophagus was carefully examined and showed the following findings: There are grade III/IV esophageal varices. Endoscopic variceal ligation EVL was applied 6 upon completion of examination. No evidence of complications. Otherwisethe mucosa appears within normal limits. There is no evidence of esophagitis, neoplasm, or stricture. No Hiatal Hernia identified. STOMACH: Upon entrance to the stomach air was insufflated, the gastric tam distended normally. The mucosa of the fundus, body and antrum of the stomach was carefully examined both head-on and on retroflexion, and showed the following findings: There is a 3 cm ulceration in the distal body of the stomach the ulcer appears to be on amount although he does not have typical malignant appearance. Single biopsy was obtained given the patient's coagulopathy. An additional 2 x 3 cm linear ulceration is present in the body of the stomach. The ulcer has benign endoscopic appearance. This is no stigmata recent bleeding. There is erythema , edema and congestion consistent with portal hypertensive gastropathy. There is no evidence of fundal gastric varices. Otherwise the mucosa appears within normal limits with no abnormalities. PYLORUS: The pylorus was carefully examined and showed the following findings: the pylorus appears patent and within normal limits, with no evidence of gastric outlet obstruction. DUODENUM: The duodenal mucosa was carefully examined in the duodenal bulb as well as the second portion of the duodenum and showed the following findings: the mucosa appears unremarkable with no evidence of duodenitis, ulcer or neoplasm. Copies To: CC: CORA HUSSEIN MD, MORDO MD Jul 09, 2017 18:42
--- NOTE | 2017-07-09 18:46 | OPPN ---
Date/Time of Note Date/Time of Note DATE: 07/09/17 TIME: 18:44 Proc Note GI Procedure Date 07/09/17 Indication: other (Liver mass/rule out GI primary) Pre-procedure Diagnosis Liver mass/rule out GI primary Post-procedure Diagnosis Impression: Normal colon mucosa. large internal hemorrhoids. Plan: Continue present regimen Advance diet as tolerated Procedure Performed: Colonoscopy Surgeon CORA HUSSEIN MD See signature line Spine Nurse none Anesthesia Type: MAC Anesthesiologist: JAY TRAMMELL DO Tourniquet Time none EBL none Transfusion required none Biopsy 1: None Grafts/Implants none Tubes/Drains none Complication(s) none Procedure Description After informed consent, with the patient/relatives understanding the procedure, its indications and potential risks and complications, including but not limited to: Allergic reaction, bleeding, perforation, infection, and after all pertinent questions were answered to the patient's satisfaction, the patient/ relatives signed the witnessed informed consent. Following this, premedication was administered slowly IV push under careful cardiovascular and respiratory monitoring with pulse OXIMETRY, automatic blood pressure, and desk monitor. Once the sedative effect was achieved, the patient was placed in the left lateral decubitus position, digital rectal examination was performed. The colonoscope was then introduced and advanced under visual control throughout all segments of the colon including: the rectum, sigmoid, descending colon, splenic flexure, transverse colon, hepatic flexure, ascending colon and finally reaching the cecum which was clearly identified by transillumination, finger indentation and the ileocecal valve. Careful examination of the mucosa of the lower gastrointestinal tract both on insertion as well as withdrawal of the instrument disclosed the following findings: PREPARATION QUALITY: [Adequate], RECTAL EXAM: The anorectal area was visualized examined and digital rectal examination performed with the following findings: No evidence of perirectal disease, no masses. COLONIC MUCOSA: The mucosa of all segments of the colon was carefully examined and showed the following findings: the examined mucosa appears within normal limits. There is no evidence of inflammatory changes, diverticular formation, polyps or neoplasms, vascular malformation, or any other abnormality. Large internal hemorrhoids present The instrument was then withdrawn, the patient tolerated the procedure well and was transferred out of the Endoscopy Suite awake and in good condition to continue recovery under observation. Copies To: CC: CORA HUSSEIN MD, MORDO MD Jul 09, 2017 18:46
[2017-07-09] MEDS: SOD FERRIC GLUC COMPLX 125 MG in SOD CHLORIDE 0.9% 100 ML IVPB SCH (20:05)
[2017-07-10] MEDS: SOD CHLORIDE 0.9% 1,000 ML IV SCH ×5 (02:04→23:15)
[2017-07-10 02:32] VITALS: BP 121/67; RESP 18
[2017-07-10] MEDS: LACTULOSE 30ML CUP PO SCH ×3 (05:24→21:17)
[2017-07-10 06:20] LABS: BASOPHIL # 0.1 10^3/ul (0.0-0.1); BASOPHILS % 0.5 % (0.0-2.0); EOSINOPHILS # 0.1 10^3/ul (0.0-0.5); HEMATOCRIT 39.1 % (42.0-52.0); HEMOGLOBIN 12.7 g/dl (14.0-18.0); LYMPHOCYTES % 15.4 % (15.0-51.0); MEAN CORPUSCULAR HEMOGLOBIN 29.2 pg (29.0-33.0); MEAN CORPUSCULAR HGB CONC 32.5 g/dl (32.0-37.0); MEAN CORPUSCULAR VOLUME 89.9 fl (82.0-101.0); MONOCYTE # 1.3 10^3/ul (0.3-0.9); MONOCYTES % 9.8 % (0.0-11.0); NEUTROPHIL # 9.2 10^3/ul (1.6-7.5); NEUTROPHILS % 72.6 % (39.0-77.0); NUCLEATED RED BLOOD CELLS% 0.2 /100WBC (0.0-0.0); PLATELET COUNT 147 10^3/UL (140-415); RED BLOOD COUNT 4.35 10^6/ul (4.70-6.10); RED CELL DISTRIBUTION WIDTH 16.9 % (11.5-14.5); WHITE BLOOD COUNT 12.7 10^3/ul (4.8-10.8)
[2017-07-10 06:54] LABS: AMYLASE 68 U/L (11-123)
[2017-07-10 06:56] LABS: MAGNESIUM 2.2 mg/dl (1.7-2.5); PHOSPHORUS 4.7 mg/dl (2.5-4.9)
[2017-07-10 07:03] LABS: ALBUMIN 2.8 g/dl (3.3-4.9); ALBUMIN/GLOBULIN RATIO 0.62; BILIRUBIN,DIRECT 1.3 mg/dl (0.00-0.20); BILIRUBIN,INDIRECT 1.5 mg/dl (0-1.1); BILIRUBIN,TOTAL 2.8 mg/dl (0.2-1.3); CALCIUM 8.6 mg/dl (8.4-10.2); CREATININE 1.34 mg/dl (0.61-1.24); POTASSIUM 4.8 mmol/L (3.5-5.1); TOTAL PROTEIN 7.3 g/dl (6.1-8.1)
[2017-07-10 07:42] VITALS: BP 120/63; RESP 16
--- NOTE | 2017-07-10 10:31 | PN ---
Date/Time of Note Date/Time of Note DATE: 07/10/17 TIME: 10:21 Assessment/Plan VTE Prophylaxis VTE Prophylaxis Intervention: SCD's Lines/Catheters IV [facility]ter Type [facility]from [facility] Assessment/Plan Chief Complaint/Hosp Course Chief Complaint/Hosp Course Assessment: Anemia normocytic EGD 07/09/17 Impression: Grade III/IV esophageal varices. Post EVL x6 3 cm distal body gastric ulceration on amount. Limited biopsies obtained 2 x 3 cm linear gastric body ulceration Otherwise normal EGD Colonoscopy 07/09/17 Impression: Normal colon mucosa. large internal hemorrhoids. Liver mass/HCC? Alcoholic liver cirrhosis Acute pancreatitis Hypertension Diabetes mellitus type 2 Transaminitis-trending up Plan: PPI therapy Advance diet as tolerated Hepatitis- negative alpha-fetoprotein 13,000's Ordered CA 19-9- negative Sx has been consulted Consider hematology Patient seen in collaboration with Dr. Vance Subjective: Patient feeling better, discussed results of lab and endoscopy, recommend hemo consult, sx had been consulted. Pt merly diet well, advance as tolerated. PHYSICAL EXAMINATION: GENERAL: Well developed, obese, well nourished, alert & oriented x 3, in no acute distress SKIN: No lesions, stigmata chronic liver disease, no evidence of bleeding diathesis, large abdominal healed scar from laparotomy for appendectomy LYMPHATIC: No palpable lymphadenopathy. HEAD: Normocephalic, atraumatic, no tenderness. EYES: Pupils equal reactive to light and accommodation, full extraocular movements, sclera clear, non-icteric, no discharge. EARS/NOSE AND THROAT: Ears normal, nose normal, oropharynx normal, oral membranes well hydrated without lesions. NECK: Supple, no masses, thyroid normal, JVP within normal limits, carotids normal without bruits. CHEST: Inspection within normal limits. CARDIOVASCULAR: Heart: Regular rate and rhythm, no murmurs, gallops or rubs. Peripheral pulses present within normal limits, no cyanosis, clubbing or edemas. No pulsatile abdominal mass RESPIRATORY: Lungs clear to auscultation and percussion, no wheezing, no rubs GASTROINTESTINAL AND LIVER: Abdomen: Soft, obese, non tenderness, non-distended , no hernias, no masses, no organomegaly, ascites, no guarding, no rebound tenderness, normoactive bowel sounds. Rectal: Deferred. GENITOURINARY: Male genitalia within normal limits. EXTREMITIES: No cyanosis, clubbing or edema. Problems: Exam/Review of Systems Vital Signs Vitals Vital Signs Date Time Temp Pulse Resp B/P Pulse Ox O2 Delivery O2 Flow Rate FiO2 07/10/17 07:42 98.2 71 16 120/63 93 07/10/17 00:13 2.0 07/09/17 18:59 Room Air Intake and Output 07/09/17 07/09/17 07/10/17 15:00 23:00 07:00 Intake Total 1100 ml 1300 ml Balance 1100 ml 1300 ml Results Result Diagram: 07/10/17 0535 07/10/17 0535 Results 24 hrs Laboratory Tests Test 07/09/17 16:31 07/10/17 05:35 Bedside Glucose 138 White Blood Count 12.7 H Red Blood Count 4.35 L Hemoglobin 12.7 L Hematocrit 39.1 L Mean Corpuscular Volume 89.9 Mean Corpuscular Hemoglobin 29.2 Mean Corpuscular Hemoglobin Concent 32.5 Red Cell Distribution Width 16.9 H Platelet Count 147 Mean Platelet Volume 12.0 H Neutrophils % 72.6 Lymphocytes % 15.4 Monocytes % 9.8 Eosinophils % 1.0 Basophils % 0.5 Nucleated Red Blood Cells % 0.2 H Neutrophils # 9.2 H Lymphocytes # 2.0 Monocytes # 1.3 H Eosinophils # 0.1 Basophils # 0.1 Nucleated Red Blood Cells # 0.0 Sodium Level 134 L Potassium Level 4.8 Chloride Level 106 Carbon Dioxide Level 16 L Anion Gap 17 H Blood Urea Nitrogen 24 H Creatinine 1.34 H Glucose Level 90 Calcium Level 8.6 Phosphorus Level 4.7 Magnesium Level 2.2 Total Bilirubin 2.8 H Direct Bilirubin 1.30 #H Indirect Bilirubin 1.5 H Aspartate Amino Transf (AST/SGOT) 686 #H Alanine Aminotransferase (ALT/SGPT) 308 H Alkaline Phosphatase 193 H Total Protein 7.3 Albumin 2.8 L Globulin 4.50 H Albumin/Globulin Ratio 0.62 Amylase Level 68 Lipase 519 H Medications Medications Current Medications Sodium Chloride (NS) 1,000 ml @ 100 mls/hr Q10H IV Last administered on t 02:04; Admin Dose 100 MLS/HR; Start 07/05/17 at 20:49 Ondansetron HCl (Zofran Inj) 4 mg Q6H PRN IV NAUSEA AND/OR VOMITING; Start at 21:00 Acetaminophen (Tylenol Tab) 650 mg Q6H PRN PO PAIN LEVEL 1-3 OR FEVER; Start 07/05/17 at 21:00 Morphine Sulfate (morphine) 2 mg Q4H PRN IV PAIN LEVEL 7-10 Last administered on 07/06/17 01:16; Admin Dose 2 MG; Start 07/05/17 at 21:00 Docusate Sodium (Colace) 100 mg Q12H PRN PO CONSTIPATION; Start 07/05/17 at 21 :00 Bisacodyl (Dulcolax) 5 mg DAILY PRN PO CONSTIPATION; Start 07/05/17 at 21:00 Hydralazine HCl (Apresoline) 10 mg Q6H PRN IV ELEVATED SYSTOLIC BP; Start at 02:30 Lactulose (Enulose) 20 gm Q8 PO Last administered on 07/10/17 05:24; Admin Dose 20 GM; Start 07/08/17 at 14:00 KOTA VOSS Jul 10, 2017 10:31
--- NOTE | 2017-07-10 14:31 | CONS ---
Date/Time of Note Date/Time of Note DATE: 07/10/17 TIME: 14:08 Assessment/Plan Assessment/Plan Chief Complaint/Hosp Course #Hepatocellular carcinoma -This is a definitive diagnosis given the liver lesions and AFP of 139,000. Liver bx is not necessary at this time -given this lymph adenopathy, it appears this disease has likely already spread beyond the liver. He is certainly not a candidate for surgery but will follow up with hepatobiliary surgery if he is a candidate for liver directed therapy. -Pt kay-amor score for cirrhosis mortality is a B. Although the benefit of Nexavar is questionable in these patient, it is not contraindicated and can be considered. Second line therapies are also now available such as Stuvarga, which is a newer generation TKI -pt would have to abstain all together from drinking if we are to initiate therapy # Essential hypertension. - Continue antihypertensives per primary team #Diabetes. -Well-controlled at this time. #EMILIANO. -continue monitor -ok to start TKI therapy with this Creatine Problems: Consultation Date/Type/Reason Admit Date/Time Jul 05, 2017 at 20:12 Date of Consultation: Jul 11, 2017 Type of Consultation: oncology Reason for Consultation hepatocellular carcinoma Referring Provider: RACHANA HORVATH of Present Illness Mr. Brown is a 61 year old male with h/o alcoholism, who initially was transferred from [facility] for complaints of abdominal pain. though secondary to pancreatitis. Initial lipase was elevated to 206. Patient has EtOH cirrhosis and is being followed by a blender snuff. Per records , Patient's last drink was 4 days prior to admission. Pt has since undergone endoscopy which revealed Grade III/IV esophageal varices as well as gastric ulcers. colonoscopy revealed normal colon mucosa as well as large internal hemorrhoids. CT A/P was done which revealed Heterogeneous liver lesions with heterogeneous marginal enhancement noted. Findings highly suspicious for infiltrative neoplastic process, hepatic cellular carcinoma. Also seen was large ascites . AFP was found to be elevated to 139,000. Constitutional: poor po Eyes: no complaints ENT: no complaints Cardiovascular: no complaints Gastrointestinal: decreased appetite Genitourinary: no complaints Musculoskeletal: no complaints Skin: no complaints Neurologic: no complaints Endocrine: no complaints Past Medical History hypertension DM Past Surgical History Past Surgical Hx: no surgical history Family History Significant Family History: no pertinent family hx Social History Alcohol Use: other (Previous heavy drinking for greater than 20 years, over the last 6 months he has decreased his drinking with the last drink 4 days ago. He is currently not an everyday drinker) Smoking Status: Never smoker Drug Use: none Exam/Review of Systems Vital Signs Vitals Vital Signs Date Time Temp Pulse Resp B/P Pulse Ox O2 Delivery O2 Flow Rate FiO2 07/10/17 07:42 98.2 71 16 120/63 93 07/10/17 00:13 2.0 07/09/17 18:59 Room Air Intake and Output 07/09/17 07/09/17 07/10/17 15:00 23:00 07:00 Intake Total 1100 ml 1300 ml Balance 1100 ml 1300 ml Exam Constitutional: alert, oriented Psych: no complaints Head: normocephalic Eyes: nl conjunctiva ENMT: nl external ears & nose Neck: non-tender, supple Respiratory: clear to auscultation, normal air movement Cardiovascular: regular rate and rhythm Gastrointestinal: soft Musculoskeletal: nl extremities to inspection, nl gait and stance Extremities: normal pulses Results Result Diagram: 07/10/17 0535 07/10/17 0535 Results 24 hrs Laboratory Tests Test 07/09/17 16:31 07/10/17 05:35 Bedside Glucose 138 White Blood Count 12.7 H Red Blood Count 4.35 L Hemoglobin 12.7 L Hematocrit 39.1 L Mean Corpuscular Volume 89.9 Mean Corpuscular Hemoglobin 29.2 Mean Corpuscular Hemoglobin Concent 32.5 Red Cell Distribution Width 16.9 H Platelet Count 147 Mean Platelet Volume 12.0 H Neutrophils % 72.6 Lymphocytes % 15.4 Monocytes % 9.8 Eosinophils % 1.0 Basophils % 0.5 Nucleated Red Blood Cells % 0.2 H Neutrophils # 9.2 H Lymphocytes # 2.0 Monocytes # 1.3 H Eosinophils # 0.1 Basophils # 0.1 Nucleated Red Blood Cells # 0.0 Sodium Level 134 L Potassium Level 4.8 Chloride Level 106 Carbon Dioxide Level 16 L Anion Gap 17 H Blood Urea Nitrogen 24 H Creatinine 1.34 H Glucose Level 90 Calcium Level 8.6 Phosphorus Level 4.7 Magnesium Level 2.2 Total Bilirubin 2.8 H Direct Bilirubin 1.30 #H Indirect Bilirubin 1.5 H Aspartate Amino Transf (AST/SGOT) 686 #H Alanine Aminotransferase (ALT/SGPT) 308 H Alkaline Phosphatase 193 H Total Protein 7.3 Albumin 2.8 L Globulin 4.50 H Albumin/Globulin Ratio 0.62 Amylase Level 68 Lipase 519 H Medications Medications Current Medications Sodium Chloride (NS) 1,000 ml @ 100 mls/hr Q10H IV Last administered on 11:20; Admin Dose 100 MLS/HR; Start 07/05/17 at 20:49 Ondansetron HCl (Zofran Inj) 4 mg Q6H PRN IV NAUSEA AND/OR VOMITING; Start at 21:00 Acetaminophen (Tylenol Tab) 650 mg Q6H PRN PO PAIN LEVEL 1-3 OR FEVER; Start 07/05/17 at 21:00 Morphine Sulfate (morphine) 2 mg Q4H PRN IV PAIN LEVEL 7-10 Last administered on 07/06/17 01:16; Admin Dose 2 MG; Start 07/05/17 at 21:00 Docusate Sodium (Colace) 100 mg Q12H PRN PO CONSTIPATION; Start 07/05/17 at 21 :00 Bisacodyl (Dulcolax) 5 mg DAILY PRN PO CONSTIPATION; Start 07/05/17 at 21:00 Hydralazine HCl (Apresoline) 10 mg Q6H PRN IV ELEVATED SYSTOLIC BP; Start at 02:30 Lactulose (Enulose) 20 gm Q8 PO Last administered on 07/10/17 13:30; Admin Dose 20 GM; Start 07/08/17 at 14:00 GOLDIE GROSS M.D. Jul 10, 2017 14:18 GOLDIE GROSS M.D. Jul 10, 2017 14:18
[2017-07-10 15:38] VITALS: BP 132/83; RESP 16
--- NOTE | 2017-07-10 15:45 | PN ---
Date/Time of Note Date/Time of Note DATE: 07/10/17 TIME: 15:43 Assessment/Plan VTE Prophylaxis VTE Prophylaxis Intervention: SCD's Lines/Catheters IV Catheter Type (from Nrs): Peripheral IV Assessment/Plan Chief Complaint/Hosp Course Assessment and plan 1. Acute pancreatitis. Suspect alcohol induced. Continue IV hydration. Advance diet as tolerated. 2. Essential hypertension. Continue antihypertensives and adjust needed. 3. History of diabetes. Well-controlled at this time. Will monitor 4. AK I. Monitor renal panel. Avoid hepatotoxic nephrotoxic medications. 5. Hyponatremia. Continue IV hydration. Slowly improving. 6. Anemia. Monitor H&H. Transfuse blood products as needed. 7. Alcoholic liver cirrhosis. Continue diuretics. GI swallow. 8. Transaminase with hyperbilirubinemia. secondary to alcohol abuse. 9. Hepatic lesions. Patient likely with HCC. Oncologist and hepatobiliary surgeon consulted. Will follow up with recommendations Disposition and plan: Oncologist following. Follow-up with hepatobiliary surgeon. Continue inpatient monitoring. Continue with HCC workup Discussed plan of care with Dr. Gutierrez Problems: Subjective 24 Hr Interval Summary Free Text/Dictation Denies any pain at this time. Exam/Review of Systems Vital Signs Vitals Vital Signs Date Time Temp Pulse Resp B/P Pulse Ox O2 Delivery O2 Flow Rate FiO2 07/10/17 15:38 97.2 83 16 132/83 98 07/10/17 00:13 2.0 07/09/17 18:59 Room Air Intake and Output 07/09/17 07/09/17 07/10/17 15:00 23:00 07:00 Intake Total 1100 ml 1300 ml Balance 1100 ml 1300 ml Exam Constitutional: alert, oriented Psych: nl mood/affect Head: normocephalic Eyes: nl conjunctiva Neck: non-tender, supple Respiratory: clear to auscultation, normal air movement Cardiovascular: nl pulses, regular rate and rhythm Gastrointestinal: other (appears distended, but nontender ), soft Musculoskeletal: nl extremities to inspection Extremities: normal pulses Neurological: CAR GREASER II-XII intact, nl mental status, nl speech Results Result Diagram: 07/10/17 0535 07/10/17 0535 Results 24 hrs Laboratory Tests Test 07/09/17 16:31 07/10/17 05:35 Bedside Glucose 138 White Blood Count 12.7 H Red Blood Count 4.35 L Hemoglobin 12.7 L Hematocrit 39.1 L Mean Corpuscular Volume 89.9 Mean Corpuscular Hemoglobin 29.2 Mean Corpuscular Hemoglobin Concent 32.5 Red Cell Distribution Width 16.9 H Platelet Count 147 Mean Platelet Volume 12.0 H Neutrophils % 72.6 Lymphocytes % 15.4 Monocytes % 9.8 Eosinophils % 1.0 Basophils % 0.5 Nucleated Red Blood Cells % 0.2 H Neutrophils # 9.2 H Lymphocytes # 2.0 Monocytes # 1.3 H Eosinophils # 0.1 Basophils # 0.1 Nucleated Red Blood Cells # 0.0 Sodium Level 134 L Potassium Level 4.8 Chloride Level 106 Carbon Dioxide Level 16 L Anion Gap 17 H Blood Urea Nitrogen 24 H Creatinine 1.34 H Glucose Level 90 Calcium Level 8.6 Phosphorus Level 4.7 Magnesium Level 2.2 Total Bilirubin 2.8 H Direct Bilirubin 1.30 #H Indirect Bilirubin 1.5 H Aspartate Amino Transf (AST/SGOT) 686 #H Alanine Aminotransferase (ALT/SGPT) 308 H Alkaline Phosphatase 193 H Total Protein 7.3 Albumin 2.8 L Globulin 4.50 H Albumin/Globulin Ratio 0.62 Amylase Level 68 Lipase 519 H Medications Medications Current Medications Sodium Chloride (NS) 1,000 ml @ 100 mls/hr Q10H IV Last administered on 11:20; Admin Dose 100 MLS/HR; Start 07/05/17 at 20:49 Ondansetron HCl (Zofran Inj) 4 mg Q6H PRN IV NAUSEA AND/OR VOMITING; Start at 21:00 Acetaminophen (Tylenol Tab) 650 mg Q6H PRN PO PAIN LEVEL 1-3 OR FEVER; Start 07/05/17 at 21:00 Morphine Sulfate (morphine) 2 mg Q4H PRN IV PAIN LEVEL 7-10 Last administered on 07/06/17 01:16; Admin Dose 2 MG; Start 07/05/17 at 21:00 Docusate Sodium (Colace) 100 mg Q12H PRN PO CONSTIPATION; Start 07/05/17 at 21 :00 Bisacodyl (Dulcolax) 5 mg DAILY PRN PO CONSTIPATION; Start 07/05/17 at 21:00 Hydralazine HCl (Apresoline) 10 mg Q6H PRN IV ELEVATED SYSTOLIC BP; Start at 02:30 Lactulose (Enulose) 20 gm Q8 PO Last administered on 07/10/17t 13:30; Admin Dose 20 GM; Start 07/08/17 at 14:00 RACHANA HORVATH Jul 10, 2017 15:45
--- NOTE | 2017-07-10 19:05 | CONS ---
DATE OF ADMISSION: 07/05/2017 DATE OF CONSULTATION: 07/10/2017 [facility] INITIAL CONSULTATION NOTE PLACE OF SERVICE: [facility] DATE: 07/10/2017 REFERRING PHYSICIAN: Hong Wells MD and José Miguel Jensen NP Dear Dr. Wells and nurse practitioner Camila: Thank you very much for allowing me to participate in the care of this very pleasant gentleman and h is wonderful family. REASON FOR CONSULTATION: Liver mass. HISTORY OF PRESENT ILLNESS: The patient is a very pleasant 61-year-old gentleman with a few comorbi dities including BMI of 48.7 and rather heavy alcohol intake history who presented through the trans leobardo process from [facility] due to insurance capitation after he presented there for abdomin al pain complaints. He was initially found to have pancreatitis. His lipase was 206. The patient also reported having recently been told that he has cirrhosis and that he was scheduled to see a hep atologist soon, but had not yet made contact. Also, has a history of hypertension and diabetes. Th e patient reported drinking mainly beer, between 6-12 beers a day or perhaps more, for many decades. He had a workup that included laboratory values showing initially normal white blood cell count an d then elevation to 12.7, a platelet count of 147, but mainly in the 140s-150s, creatinine of 1.34, CO2 of 16, total bilirubin of 2.8, AST 686, ALT 308, alkaline phosphatase 193, and total bilirubin o f 2.8, and lipase of 519. Tumor markers were checked including alpha fetoprotein which was 13,900 a nd CA 19-9 of less than 1.4. His INR was 1.55, and his serologies for hepatitis A, B and C were neg ative. IMAGING: Included an abdominal ultrasound on 07/08/2017 that showed mild perihepatic ascites and di ffuse heterogeneous appearance of the liver with contour nodularity suggesting changes of cirrhosis. Lesions were seen in the liver measuring up to 4.5 cm. Gallbladder wall appeared to be thickened. Intrahepatic biliary system appeared to be normal. A CT scan of abdomen and pelvis was performed on 07/08/2017 that demonstrated multiple liver lesions with heterogeneous marginal enhancement. The largest of these lesions was 6 cm, and it was located in the segment 6, 7 and 8 of the liver. The portal and hepatic veins were thought to be patent. I was kindly asked to consult regarding managem ent of these lesions. When I met with the patient, he was not reporting any significant abdominal pain. He did not have a ny nausea or vomiting and did not have any chest pain or shortness of breath. He reported no previo us significant history of heart disease or lung disease in the past. He did not report any major ch anges in his appetite or changes in bowel or bladder habits. COMORBIDITIES: 1. BMI of 48.7. 2. History of cirrhosis, likely alcohol and obesity related. No connection to medical system as of yet for the cirrhosis. 3. Hypertension. 4. Diabetes. 5. Mild thrombocytopenia, possibly indicating portal hypertension. 6. Mild ascites, possibly indicating complication of cirrhosis. 7. Albumin 2.7 after hydration. 8. History of appendectomy as a young child, through a lower midline incision which potentially was complicated since it appears to have healed by tertiary intention. ALLERGIES: NO KNOWN DRUG ALLERGIES. MEDICATIONS: Carefully reported and reviewed in the electronic record system. SOCIAL HISTORY: The patient lives with his family. He reports quitting drinking very recently, but resumed a lower amount of intake over the last few days. No significant history of smoking or intr avenous drug use reported. FAMILY HISTORY: There is no mention of major medical, surgical or oncologic problems in the family. REVIEW OF SYSTEMS: Other than the above-mentioned, there are no other pertinent positives or pertin ent negatives in a complete 14-point review of systems. PHYSICAL EXAMINATION: GENERAL: The patient appears to be a very pleasant gentleman of descent, appeari ng stated age, lying in bed comfortably, and in no acute distress. BMI is 48.7. VITAL SIGNS: Normal, with the exception of blood pressure of 132/83 and a temperature of 97.2. HEENT: His head is normocephalic and atraumatic. His extraocular muscles and hearing are grossly i ntact bilaterally and symmetrically. His sclerae are nonicteric. His oral cavity is clear, and his oral mucosa appeared to be pink and moist. He has fair to poor dentition. NECK: Supple. There is no lymphadenopathy or JVD. There is no submental, submandibular or supracl avicular lymphadenopathy. CHEST: Rises symmetrically with each breath, and he is breathing comfortably. There are no audible wheezes, rales or rhonchi on the gross exam. Carotid pulses are palpable bilaterally and symmetric ally in his neck. EXTREMITIES: Lower extremities contain 1+ pitting edema around the ankles bilaterally and symmetric ally. His radial pulse is palpable on the left wrist. ABDOMEN: Soft and protuberant, but does not appear to be distended, and nontender. There seems to be ascites within a very small umbilical hernia site. The lower midline incision from his appendect manda appears to have healed by tertiary intention and has the characteristic scar to it. There is no obvious organomegaly, caput medusae, engorged subcutaneous veins, or obvious ascites, although agai n there is trace edema on the skin itself. There are no peritoneal signs or guarding. SKIN: Appears to be pink and feels warm to touch. NEUROLOGIC: He is awake, alert, and follows commands appropriately. LABORATORY VALUES: As above. IMAGING: As above. Note, that I personally reviewed all the available images, and I agree in gener al with their overall reported findings. ASSESSMENT AND PLAN: A very pleasant but unfortunate 61-year-old gentleman presenting with alcoholi c cirrhosis, possibly contributed on by obesity related cirrhosis and complications of ascites and p ossible portal hypertension seen by mild thrombocytopenia, and presence of complex large over 6 cm l esion in primarily right lobe of the liver, but associated with an alpha fetoprotein of 13,900. Thi s is all very concerning for advanced hepatocellular carcinoma. There is some lymphadenopathy in hi s CT scan, and with this elevation in alpha fetoprotein, my concern is for the hepatocellular carcin loreto to have come outside of the liver at this point. I do not believe that the patient can survive major hepatectomy, given his cirrhosis and his other comorbidities. Local therapy to the liver is p ossible, although, if we believe that he has spread of disease, it could be reserved for palliative purposes. Systemic chemotherapy is also an option. I believe Dr. Hilton from department of oncology has been involved in the patient's care, and we plan on having a multidisciplinary tumor board pres entation of the clinical picture and set the patient up for outpatient therapy. He can certainly st ay in the hospital until his pancreatitis has been appropriately dealt with, and that he can dischar ge home safely. I explained all of this in detail with the patient and his and answered all of their questions to the best of my ability. The patient and his family appeared to understand and a greed with the plans. With the above assessments, I have recommend the followin. Keep inhouse until medically cleared for discharge including treatment for mild pancreatitis. 2. Set up patient for oncology treatment with Dr. Hilton as mentioned in other notes. 3. Multidisciplinary Tumor Board presentation. 4. Possible need for transarterial chemoembolization or radioembolization or a combination of both for treatment of the patient's cancer locally. 5. Clarifications of goals of therapy and possible need for supportive care management involvement early in the care. Thank you again for allowing us to participate in the care of this very pleasant gentleman and his w onderful family. If there are any questions, please feel free to contact me at [phone]. NATURE OF PRESENTING PROBLEM: High risk. COMPLEXITY OF DECISION MAKING: High complexity. Dictated By: DANIA HITCHCOCK/NTS Conf#: [id number] DID#: [id number] CC: HONG WELLS MD;*EndCC*
[2017-07-10 19:41] VITALS: BP 108/68; RESP 20
[2017-07-11 02:10] VITALS: BP 129/80; RESP 18
[2017-07-11] MEDS: morphine 2 MG INJ IV PRN (02:16)
[2017-07-11 06:02] LABS: BASOPHIL # 0.1 10^3/ul (0.0-0.1); BASOPHILS % 0.6 % (0.0-2.0); EOSINOPHILS # 0.5 10^3/ul (0.0-0.5); EOSINOPHILS % 3.7 % (0.0-7.0); HEMATOCRIT 38.1 % (42.0-52.0); LYMPHOCYTES # 2.3 10^3/ul (0.8-2.9); LYMPHOCYTES % 18.3 % (15.0-51.0); MEAN CORPUSCULAR HEMOGLOBIN 29.7 pg (29.0-33.0); MEAN CORPUSCULAR HGB CONC 34.1 g/dl (32.0-37.0); MEAN PLATELET VOLUME 11.2 fl (7.4-10.4); MONOCYTE # 1.3 10^3/ul (0.3-0.9); MONOCYTES % 10.8 % (0.0-11.0); NEUTROPHIL # 8.1 10^3/ul (1.6-7.5); NEUTROPHILS % 65.6 % (39.0-77.0); NUCLEATED RED BLOOD CELLS% 0.2 /100WBC (0.0-0.0); PLATELET COUNT 121 10^3/UL (140-415); RED BLOOD COUNT 4.38 10^6/ul (4.70-6.10); RED CELL DISTRIBUTION WIDTH 16.7 % (11.5-14.5); WHITE BLOOD COUNT 12.4 10^3/ul (4.8-10.8)
[2017-07-11] MEDS: LACTULOSE 30ML CUP PO SCH ×3 (06:27→22:13)
[2017-07-11 06:48] LABS: CALCIUM 8.1 mg/dl (8.4-10.2); CREATININE 1.15 mg/dl (0.61-1.24); POTASSIUM 4.4 mmol/L (3.5-5.1)
[2017-07-11 07:48] VITALS: BP 133/90; RESP 30
[2017-07-11] MEDS: SOD CHLORIDE 0.9% 1,000 ML IV SCH ×2 (08:37→19:15)
[2017-07-11 13:15] VITALS: BP 124/75; RESP 20
--- NOTE | 2017-07-11 15:11 | PN ---
Date/Time of Note Date/Time of Note DATE: 07/11/17 TIME: 15:01 Assessment/Plan VTE Prophylaxis VTE Prophylaxis Intervention: ambulation Lines/Catheters IV [facility] Peripheral IV Assessment/Plan Chief Complaint/Hosp Course Assessment: Ascites Liver mass poss. Hepatocellular carcinoma Alcoholic liver cirrhosis with varices Transaminitis and bilirubinemia Acute pancreatitis Hypertension Diabetes mellitus type 2 Anemia normocytic EGD 07/09/17 Impression: Grade III/IV esophageal varices. Post EVL x6 3 cm distal body gastric ulceration on amount. Limited biopsies obtained 2 x 3 cm linear gastric body ulceration Otherwise normal EGD Colonoscopy 07/09/17 Impression: Normal colon mucosa. large internal hemorrhoids Plan: Abdominal ultrasound with paracentesis today Start spironolactone 100 mg twice daily CA 19-9 -negative Continue regular diet liquid diet Hepatology follow-up Consultation performed in collaboration with Dr. Vance Subjective: Patient is feeling good, denies pain, nausea, or constipation. Tolerating regular diet well. Patient had 3 bowel movements today. Scheduled for ultrasound-guided paracentesis today. Will follow up with medical economics consultant as an outpatient. All imaging and laboratory values have been reviewed. Course of treatment has been discussed with the nursing staff. PHYSICAL EXAMINATION: GENERAL: Well developed, well nourished, alert & oriented x 3, in no acute distress SKIN: No lesions, no stigmata chronic liver disease, multiple bruising LYMPHATIC: No palpable lymphadenopathy. HEAD: Normocephalic, atraumatic, no tenderness. EYES: Pupils equal reactive to light and accommodation, full extraocular movements, sclera clear, non-icteric, no discharge. EARS/NOSE AND THROAT: Ears normal, nose normal, oropharynx normal, oral membranes well hydrated without lesions. NECK: Supple, no masses, thyroid normal, JVP within normal limits, carotids normal without bruits. CHEST: Inspection within normal limits. CARDIOVASCULAR: Heart: Regular rate and rhythm, no murmurs, gallops or rubs. Peripheral pulses present within normal limits, no cyanosis, clubbing or edemas. No pulsatile abdominal mass RESPIRATORY: Lungs clear to auscultation and percussion, no wheezing, no rubs GASTROINTESTINAL AND LIVER: Abdomen: Soft, non tenderness, distended, no hernias , no masses, no organomegaly, severe ascites, no guarding, no rebound tenderness , normoactive bowel sounds. Rectal: Deferred. GENITOURINARY: Male genitalia within normal limits. EXTREMITIES: No cyanosis, clubbing or edema. Problems: Exam/Review of Systems Vital Signs Vitals Vital Signs Date Time Temp Pulse Resp B/P Pulse Ox O2 Delivery O2 Flow Rate FiO2 07/11/17 13:15 97.2 2 20 124/75 94 07/11/17 08:00 2.0 07/10/17 20:00 Nasal Cannula Intake and Output 07/10/17 07/10/17 07/11/17 15:00 23:00 07:00 Intake Total 2680 ml 1160 ml Balance 2680 ml 1160 ml Results Result Diagram: 07/11/17 0540 07/11/17 0540 Results 24 hrs Laboratory Tests Test 07/11/17 05:40 White Blood Count 12.4 H Red Blood Count 4.38 L Hemoglobin 13.0 L Hematocrit 38.1 L Mean Corpuscular Volume 87.0 Mean Corpuscular Hemoglobin 29.7 Mean Corpuscular Hemoglobin Concent 34.1 Red Cell Distribution Width 16.7 H Platelet Count 121 L Mean Platelet Volume 11.2 H Neutrophils % 65.6 Lymphocytes % 18.3 Monocytes % 10.8 Eosinophils % 3.7 Basophils % 0.6 Nucleated Red Blood Cells % 0.2 H Neutrophils # 8.1 H Lymphocytes # 2.3 Monocytes # 1.3 H Eosinophils # 0.5 Basophils # 0.1 Nucleated Red Blood Cells # 0.0 Sodium Level 135 Potassium Level 4.4 Chloride Level 109 Carbon Dioxide Level 16 L Anion Gap 14 Blood Urea Nitrogen 24 H Creatinine 1.15 Glucose Level 98 Calcium Level 8.1 L Medications Medications Current Medications Sodium Chloride (NS) 1,000 ml @ 100 mls/hr Q10H IV Last administered on 08:37; Admin Dose 100 MLS/HR; Start 07/05/17 at 20:49 Ondansetron HCl (Zofran Inj) 4 mg Q6H PRN IV NAUSEA AND/OR VOMITING; Start at 21:00 Acetaminophen (Tylenol Tab) 650 mg Q6H PRN PO PAIN LEVEL 1-3 OR FEVER; Start 07/05/17 at 21:00 Morphine Sulfate (morphine) 2 mg Q4H PRN IV PAIN LEVEL 7-10 Last administered on 07/11/17 02:16; Admin Dose 2 MG; Start 07/05/17 at 21:00 Docusate Sodium (Colace) 100 mg Q12H PRN PO CONSTIPATION; Start 07/05/17 at 21 :00 Bisacodyl (Dulcolax) 5 mg DAILY PRN PO CONSTIPATION; Start 07/05/17 at 21:00 Hydralazine HCl (Apresoline) 10 mg Q6H PRN IV ELEVATED SYSTOLIC BP; Start at 02:30 Lactulose (Enulose) 20 gm Q8 PO Last administered on 07/11/17t 13:05; Admin Dose 20 GM; Start 07/08/17 at 14:00 Copies To: CC: CORA VANCE MD, ANASTASIA NP Jul 11, 2017 15:10
--- NOTE | 2017-07-11 16:00 | PN ---
Date/Time of Note Date/Time of Note DATE: 07/11/17 TIME: 15:57 Assessment/Plan VTE Prophylaxis VTE Prophylaxis Intervention: SCD's Lines/Catheters IV Catheter Type (from Nrs): Peripheral IV Assessment/Plan Chief Complaint/Hosp Course Assessment and plan 1. Acute pancreatitis. Suspect alcohol induced. Continue IV hydration. Advance diet as tolerated. 2. Essential hypertension. Continue antihypertensives and adjust needed. 3. History of diabetes. Well-controlled at this time. Will monitor 4. AK I. Monitor renal panel. Avoid hepatotoxic nephrotoxic medications. 5. Hyponatremia. Continue IV hydration. Slowly improving. 6. Anemia. Monitor H&H. Transfuse blood products as needed. 7. Alcoholic liver cirrhosis. Continue diuretics. GI swallow. 8. Transaminase with hyperbilirubinemia. secondary to alcohol abuse. 9. Hepatic lesions. Patient with HCC. Plan for outpatient follow up with surgeon and oncologist Disposition and plan: plan for paracentesis. anticipate within the next 24 hours if medically stable and cleared by consultants Discussed plan of care with Dr. Gutierrez Problems: Subjective 24 Hr Interval Summary Free Text/Dictation no s/s of distress. comfortable at present. Exam/Review of Systems Vital Signs Vitals Vital Signs Date Time Temp Pulse Resp B/P Pulse Ox O2 Delivery O2 Flow Rate FiO2 07/11/17 13:15 97.2 2 20 124/75 94 07/11/17 08:00 2.0 07/10/17 20:00 Nasal Cannula Intake and Output 07/10/17 07/10/17 07/11/17 14:59 22:59 06:59 Intake Total 2680 ml 1160 ml Balance 2680 ml 1160 ml Exam Constitutional: alert, oriented Psych: nl mood/affect Head: normocephalic Eyes: nl conjunctiva Neck: non-tender, supple Respiratory: clear to auscultation, normal air movement Cardiovascular: nl pulses, regular rate and rhythm Gastrointestinal: other (appears distended, but nontender ), soft Musculoskeletal: nl extremities to inspection Extremities: some swelling BLE Neurological: LIVING SPECIALIST II-XII intact, nl mental status, nl speech Results Result Diagram: 07/11/17 0540 07/11/17 0540 Results 24 hrs Laboratory Tests Test 07/11/17 05:40 White Blood Count 12.4 H Red Blood Count 4.38 L Hemoglobin 13.0 L Hematocrit 38.1 L Mean Corpuscular Volume 87.0 Mean Corpuscular Hemoglobin 29.7 Mean Corpuscular Hemoglobin Concent 34.1 Red Cell Distribution Width 16.7 H Platelet Count 121 L Mean Platelet Volume 11.2 H Neutrophils % 65.6 Lymphocytes % 18.3 Monocytes % 10.8 Eosinophils % 3.7 Basophils % 0.6 Nucleated Red Blood Cells % 0.2 H Neutrophils # 8.1 H Lymphocytes # 2.3 Monocytes # 1.3 H Eosinophils # 0.5 Basophils # 0.1 Nucleated Red Blood Cells # 0.0 Sodium Level 135 Potassium Level 4.4 Chloride Level 109 Carbon Dioxide Level 16 L Anion Gap 14 Blood Urea Nitrogen 24 H Creatinine 1.15 Glucose Level 98 Calcium Level 8.1 L Medications Medications Current Medications Sodium Chloride (NS) 1,000 ml @ 100 mls/hr Q10H IV Last administered on 08:37; Admin Dose 100 MLS/HR; Start 07/05/17 at 20:49 Ondansetron HCl (Zofran Inj) 4 mg Q6H PRN IV NAUSEA AND/OR VOMITING; Start at 21:00 Acetaminophen (Tylenol Tab) 650 mg Q6H PRN PO PAIN LEVEL 1-3 OR FEVER; Start 07/05/17 at 21:00 Morphine Sulfate (morphine) 2 mg Q4H PRN IV PAIN LEVEL 7-10 Last administered on 07/11/17 02:16; Admin Dose 2 MG; Start 07/05/17 at 21:00 Docusate Sodium (Colace) 100 mg Q12H PRN PO CONSTIPATION; Start 07/05/17 at 21 :00 Bisacodyl (Dulcolax) 5 mg DAILY PRN PO CONSTIPATION; Start 07/05/17 at 21:00 Hydralazine HCl (Apresoline) 10 mg Q6H PRN IV ELEVATED SYSTOLIC BP; Start at 02:30 Lactulose (Enulose) 20 gm Q8 PO Last administered on 07/11/17 13:05; Admin Dose 20 GM; Start 07/08/17 at 14:00 RACHANA HORVATH Jul 11, 2017 16:00
--- NOTE | 2017-07-11 16:51 | PN ---
Date/Time of Note Date/Time of Note DATE: 07/11/17 TIME: 16:49 Assessment/Plan Lines/Catheters IV Catheter Type (from Nrsg): Peripheral IV Assessment/Plan Assessment/Plan [facility] Progress Note Date of Service: 07/11/17 Today's Impression & Plan: Overall stable. Awaiting further improvement in pancreatitis prior to d/c home and for treatment for HCC. Systemic chemo +/- TACE. No indication for acute surgical intervention. With above assessment, I've recommended the following for today: 1. May d/c home when medically stable 2. F/u with Oncology 3. F/u with PCP 4. F/u with us in a few weeks Nature of presenting problem: Thank you again for your great care of this very pleasant patient and wonderful family. If there are any questions, please feel free to call me at [phone]. Disclaimer: Inadvertent spelling or grammatical errors are likely due to EHR/ dictation software use and do not reflect on the overall quality of patient care. Updated Clinical Summary: 1. BMI of 48.7. 2. History of cirrhosis, likely alcohol and obesity related. No connection to medical system as of yet for the cirrhosis. 3. Hypertension. 4. Diabetes. 5. Mild thrombocytopenia, possibly indicating portal hypertension. 6. Mild ascites, possibly indicating complication of cirrhosis. 7. Albumin 2.7 after hydration. 8. History of appendectomy as a young child, through a lower midline incision which potentially was complicated since it appears to have healed by tertiary intention. Subjective: No major events or complaints; no abd pain and under control with medications; no n/v/d; no sob or cp; + flatus; + BM; + activity Objective: Vitals: See below Exam: GENERAL: On exam, the patient was sitting in a chair and appeared to be comfortable and in no acute distress. ABDOMEN: Soft, nontender and nondistended. There are no peritoneal signs or guarding. SKIN: Skin appears to be pink and feels warm to touch. NEUROLOGIC: Patient is awake, alert, and follows commands appropriately. Exam/Review of Systems Vital Signs Vitals Vital Signs Date Time Temp Pulse Resp B/P Pulse Ox O2 Delivery O2 Flow Rate FiO2 07/11/17 13:15 97.2 2 20 124/75 94 07/11/17 08:00 2.0 07/10/17 20:00 Nasal Cannula Intake and Output 07/10/17 07/10/17 07/11/17 14:59 22:59 06:59 Intake Total 2680 ml 1160 ml Balance 2680 ml 1160 ml Results Result Diagram: 07/11/17 0540 07/11/17 0540 DANIA RIDER M.D. Jul 11, 2017 16:51
--- NOTE | 2017-07-11 17:25 | RADRPT ---
PROCEDURE: US Abdomen (limited). CLINICAL INDICATION: Abdominal pain and distension. TECHNIQUE: Multiple real-time longitudinal and transverse images of the four quadrants of the abdo men were acquired utilizing a curved array transducer. Images were reviewed on a high-resolution PAC S workstation. COMPARISON: None FINDINGS: There is minimal free fluid in the abdomen. Paracentesis was not performed. IMPRESSION: 1. Minimal free fluid in the abdomen. 2. Paracentesis was not performed. RPTAT: QQ .Jeremie Yadav MD, MD Date Time Electronically viewed and signed by .Jeremie Yadav MD, on 07/11/2017 17:24 .R/
[2017-07-11] MEDS: SPIRONOLACTONE 50 MG TAB PO SCH (17:28)
[2017-07-11 19:40] VITALS: BP 99/57; RESP 20
[2017-07-12] MEDS: SOD CHLORIDE 0.9% 1,000 ML IV SCH ×4 (01:06→15:15)
[2017-07-12 01:39] VITALS: BP 100/56; RESP 20
[2017-07-12] MEDS: LACTULOSE 30ML CUP PO SCH ×2 (05:27→13:32)
[2017-07-12 05:28] VITALS: BP 105/63; PULSE 80
[2017-07-12] MEDS: SPIRONOLACTONE 50 MG TAB PO SCH (05:28)
[2017-07-12 05:57] LABS: ABNORMAL IP MESSAGE 1; BASOPHIL # 0.1 10^3/ul (0.0-0.1); BASOPHILS % 0.5 % (0.0-2.0); EOSINOPHILS # 0.3 10^3/ul (0.0-0.5); EOSINOPHILS % 3.3 % (0.0-7.0); HEMOGLOBIN 12.7 g/dl (14.0-18.0); LYMPHOCYTES # 1.8 10^3/ul (0.8-2.9); LYMPHOCYTES % 18.3 % (15.0-51.0); MEAN CORPUSCULAR HGB CONC 34.3 g/dl (32.0-37.0); MEAN CORPUSCULAR VOLUME 87.3 fl (82.0-101.0); MEAN PLATELET VOLUME 11.4 fl (7.4-10.4); MONOCYTE # 1.2 10^3/ul (0.3-0.9); MONOCYTES % 12.2 % (0.0-11.0); NEUTROPHIL # 6.5 10^3/ul (1.6-7.5); NEUTROPHILS % 65.1 % (39.0-77.0); NUCLEATED RED BLOOD CELLS% 0.2 /100WBC (0.0-0.0); PLATELET COUNT 89 10^3/UL (140-415); POSITIVE DIFF @See below; RED BLOOD COUNT 4.24 10^6/ul (4.70-6.10); RED CELL DISTRIBUTION WIDTH 17.9 % (11.5-14.5)
[2017-07-12 06:36] LABS: CALCIUM 8.3 mg/dl (8.4-10.2); CREATININE 1.02 mg/dl (0.61-1.24); POTASSIUM 4.4 mmol/L (3.5-5.1)
[2017-07-12 07:31] VITALS: BP 115/70; RESP 14
[2017-07-12 13:51] VITALS: BP 120/69; RESP 16
--- NOTE | 2017-07-12 13:54 | PN ---
Date/Time of Note Date/Time of Note DATE: 07/12/17 TIME: 13:48 Assessment/Plan VTE Prophylaxis VTE Prophylaxis Intervention: ambulation Lines/Catheters IV Catheter Type (from Nrs): Peripheral IV Assessment/Plan Chief Complaint/Hosp Course Assessment: Ascites Liver mass poss. Hepatocellular carcinoma Alcoholic liver cirrhosis with varices Transaminitis and bilirubinemia Pancreatitis Hypertension Diabetes mellitus type 2 Anemia normocytic EGD 07/09/17 Impression: Grade III/IV esophageal varices. Post EVL x6 3 cm distal body gastric ulceration on amount. Limited biopsies obtained 2 x 3 cm linear gastric body ulceration Otherwise normal EGD Colonoscopy 07/09/17 Impression: Normal colon mucosa. large internal hemorrhoids Plan: Abdominal ultrasound-not enough fluid for paracentesis Continue spironolactone CA 19-9 -negative Continue regular diet liquid diet Hepatology follow-up Consultation performed in collaboration with Dr. Vance Subjective: Patient is feeling good, denies pain, nausea, or constipation. Tolerating regular diet well. Patient had several movements today. Patient is stable for outpatient management from GI standpoint , getting discharged home today. Will follow up with regulatory and compliance technician after discharge. All imaging and laboratory values have been reviewed. Course of treatment has been discussed with the nursing staff. PHYSICAL EXAMINATION: GENERAL: Well developed, well nourished, alert & oriented x 3, in no acute distress SKIN: No lesions, no stigmata chronic liver disease, multiple bruising LYMPHATIC: No palpable lymphadenopathy. HEAD: Normocephalic, atraumatic, no tenderness. EYES: Pupils equal reactive to light and accommodation, full extraocular movements, sclera clear, non-icteric, no discharge. EARS/NOSE AND THROAT: Ears normal, nose normal, oropharynx normal, oral membranes well hydrated without lesions. NECK: Supple, no masses, thyroid normal, JVP within normal limits, carotids normal without bruits. CHEST: Inspection within normal limits. CARDIOVASCULAR: Heart: Regular rate and rhythm, no murmurs, gallops or rubs. Peripheral pulses present within normal limits, no cyanosis, clubbing or edemas. No pulsatile abdominal mass RESPIRATORY: Lungs clear to auscultation and percussion, no wheezing, no rubs GASTROINTESTINAL AND LIVER: Abdomen: Soft, non tenderness, distended, no hernias , no masses, no organomegaly, ascites, no guarding, no rebound tenderness, normoactive bowel sounds. Rectal: Deferred. GENITOURINARY: Male genitalia within normal limits. EXTREMITIES: No cyanosis, clubbing or edema. Problems: Exam/Review of Systems Vital Signs Vitals Vital Signs Date Time Temp Pulse Resp B/P Pulse Ox O2 Delivery O2 Flow Rate FiO2 07/12/17 07:31 97.7 83 14 115/70 92 07/12/17 04:37 2.0 07/10/17 20:00 Nasal Cannula Intake and Output 07/11/17 07/11/17 07/12/17 14:59 22:59 06:59 Intake Total 800 ml 2140 ml 1300 ml Balance 800 ml 2140 ml 1300 ml Results Result Diagram: 07/12/17 0530 07/12/17 0530 Results 24 hrs Laboratory Tests Test 07/12/17 05:30 White Blood Count 10.0 Red Blood Count 4.24 L Hemoglobin 12.7 L Hematocrit 37.0 L Mean Corpuscular Volume 87.3 Mean Corpuscular Hemoglobin 30.0 Mean Corpuscular Hemoglobin Concent 34.3 Red Cell Distribution Width 17.9 H Platelet Count 89 #L Mean Platelet Volume 11.4 H Neutrophils % 65.1 Lymphocytes % 18.3 Monocytes % 12.2 H Eosinophils % 3.3 Basophils % 0.5 Nucleated Red Blood Cells % 0.2 H Neutrophils # 6.5 Lymphocytes # 1.8 Monocytes # 1.2 H Eosinophils # 0.3 Basophils # 0.1 Nucleated Red Blood Cells # 0.0 Sodium Level 135 Potassium Level 4.4 Chloride Level 110 Carbon Dioxide Level 16 L Anion Gap 13 Blood Urea Nitrogen 21 H Creatinine 1.02 Glucose Level 95 Calcium Level 8.3 L Medications Medications Current Medications Sodium Chloride (NS) 1,000 ml @ 100 mls/hr Q10H IV Last administered on 11:20; Admin Dose 100 MLS/HR; Start 07/05/17 at 20:49 Ondansetron HCl (Zofran Inj) 4 mg Q6H PRN IV NAUSEA AND/OR VOMITING; Start at 21:00 Acetaminophen (Tylenol Tab) 650 mg Q6H PRN PO PAIN LEVEL 1-3 OR FEVER; Start 07/05/17 at 21:00 Morphine Sulfate (morphine) 2 mg Q4H PRN IV PAIN LEVEL 7-10 Last administered on 07/11/17 02:16; Admin Dose 2 MG; Start 07/05/17 at 21:00 Docusate Sodium (Colace) 100 mg Q12H PRN PO CONSTIPATION; Start 07/05/17 at 21 :00 Bisacodyl (Dulcolax) 5 mg DAILY PRN PO CONSTIPATION; Start 07/05/17 at 21:00 Hydralazine HCl (Apresoline) 10 mg Q6H PRN IV ELEVATED SYSTOLIC BP; Start at 02:30 Lactulose (Enulose) 20 gm Q8 PO Last administered on 07/12/17 13:32; Admin Dose 20 GM; Start 07/08/17 at 14:00 Copies To: CC: CORA VANCE MD, ANASTASIA NP Jul 12, 2017 13:54
[2017-07-12] MEDS ORDERED: SPIR50TA PO (14:03)
[2017-07-12] MEDS ORDERED: LACT20SO2 PO (14:03)
--- NOTE | 2017-07-12 14:08 | PDOCDIS ---
Discharge Instructions DIAGNOSIS Discharge Diagnosis 1. Acute pancreatitis. 2. Essential hypertension. 3. History of diabetes. 4. AK I. 5. Hyponatremia. 6. Anemia. 7. Alcoholic liver cirrhosis. 8. Transaminase with hyperbilirubinemia. 9. hepatocellular carcinoma CONDITION Patient Condition: Stable HOME CARE INSTRUCTIONS: Diet Instructions: Low Fat /Cholesterol FOLLOW UP/APPOINTMENTS Follow-up Plan 1. Follow up with Dr. Uma Hilton in one week Office Address [id number] [facility] [address] [place] [address] Office 2. Follow up with Dr. Romaine Oneil in one week Office Address [address] [facility] [address] [place] [address] Office 3. Follow up with Dr. Janiya Vance in one week Office Address [address] [facility] [place] [address] Office RACHANA HORVATH Jul 12, 2017 14:08
== END 2017-07-12 17:20 | disposition home or self-care (01) | DRG 439 ==
LOC: TEL 20:12 → MS2 07-08 00:15
PROVIDERS: ADMIT Family Medicine; ATTEND Family Medicine
PROC: 0DB68ZX Excision of Stomach, Via Natural or Artificial Opening Endoscopic, Diagnostic (ICD-10-PCS; principal; 2017-07-09 19:30)
PROC: 0DJD8ZZ Inspection of Lower Intestinal Tract, Via Natural or Artificial Opening Endoscopic (ICD-10-PCS; 2017-07-09 19:30)
DX: K85.20 Alcohol induced acute pancreatitis without necrosis or infection (principal); C22.0 Liver cell carcinoma; N17.9 Acute kidney failure, unspecified; D69.6 Thrombocytopenia, unspecified; I85.10 Secondary esophageal varices without bleeding; K76.6 Portal hypertension; Z68.42 Body mass index [BMI] 45.0-49.9, adult; E87.5 Hyperkalemia; E87.1 Hypo-osmolality and hyponatremia; E86.0 Dehydration; F10.20 Alcohol dependence, uncomplicated; E11.9 Type 2 diabetes mellitus without complications; D64.9 Anemia, unspecified; K64.8 Other hemorrhoids; K25.9 Gastric ulcer, unspecified as acute or chronic, without hemorrhage or perforation; K70.31 Alcoholic cirrhosis of liver with ascites; E80.7 Disorder of bilirubin metabolism, unspecified; E66.9 Obesity, unspecified
CPT/HCPCS: 71010; 74178; 76705; 76775; 80048; 80053; 80061; 81001; 82105; 82140; 82150; 82728; 82962; 83036; 83540; 83690; 83735; 83930; 83935; 84100; 84300; 84443; 85025; 85610; 85730; 86301; 86704; 86709; 86803; 87081; 87340; 88305; 88312; 94640; 94664; J1815; J2270; J2765; J2916; J7030; P9047; Q9967

== ENCOUNTER 2017-07-21 13:33 | Inpatient (IN) | END 2017-08-03 01:00 | disposition EXP | DRG 435 ==